=== PATIENT | female | born 1960 | race Asian ===

== ENCOUNTER 2018-03-06 19:39 | Emergency (ER) | payer OTHER ==
[2018-03-06 20:02] LABS: BILIRUBIN,URINE NEGATIVE (NEG); CLARITY,URINE CLEAR; COLOR,URINE YELLOW; GLUCOSE,URINE NEGATIVE (NEG); NITRITE,URINE NEGATIVE (NEG); PH,URINE 6.5; PROTEIN,URINE NEGATIVE (NEG-TRACE); UROBILINOGEN,URINE 0.2 mg/dL (0.2 mg/dL)
[2018-03-06] MEDS: fentaNYL PF VIAL 100 MCG/2 ML VIAL IV (20:14)
[2018-03-06] MEDS: ONDANSETRON PF 4 MG/2 ML VIAL. IV (20:14)
[2018-03-06] MEDS: IV NORMAL SALINE 1000ML BAG 1,000 ML IV (20:14)
[2018-03-06 20:15] LABS: BACTERIA,URINE FEW /HPF (0-FEW); RBC,URINE 0 /HPF (0-2); SQUAMOUS EPITHELIAL CELL,UR OCC /LPF; WBC,URINE OCC /HPF (0-4)
[2018-03-06 20:23] LABS: ADD MAN DIFF? NO
[2018-03-06 20:25] LABS: BASO % 0 % (0-3); EOS # 0.1 x10^3/uL (0.0-0.7); EOS % 2 % (0-3); HEMOGLOBIN 11.8 g/dL (12.0-15.5); LYMPH # 1.3 x10^3/uL (1.0-4.8); LYMPH % 25 % (24-48); MEAN CORPUSCULAR HEMOGLOBIN 29 pg (25-35); MEAN CORPUSCULAR HGB CONC 34 g/dL (31-37); MEAN CORPUSCULAR VOLUME 87 fL (79-100); MONO # 0.4 x10^3/uL (0.0-1.1); MONO % 8 % (0-9); NEUT # 3.4 x10^3uL (1.8-7.7); NEUT % 65 % (31-73); PLATELET COUNT 196 x10^3/uL (140-400); RED BLOOD COUNT 4.02 x10^6/uL (3.50-5.40); RED CELL DISTRIBUTION WIDTH 15.6 % (11.5-14.5); WHITE BLOOD COUNT 5.2 x10^3/uL (4.0-11.0)
[2018-03-06 20:38] LABS: ANION GAP 9 (6-14); BLOOD UREA NITROGEN 11 mg/dL (7-20); BUN/CREATININE RATIO 12 (6-20); CALCIUM 9.9 mg/dL (8.5-10.1); CARBON DIOXIDE 28 mmol/L (21-32); CHLORIDE 99 mmol/L (98-107); CREATININE 0.9 mg/dL (0.6-1.0); GFR 64.3; GLUCOSE 89 mg/dL (70-99); POTASSIUM 4.5 mmol/L (3.5-5.1); SODIUM 136 mmol/L (136-145)
[2018-03-06 20:44] LABS: ALBUMIN 3.9 g/dL (3.4-5.0); ALK PHOS 87 U/L (46-116); ALT (SGPT) 32 U/L (14-59); AST (SGOT) 21 U/L (15-37); LIPASE 106 U/L (73-393); TOTAL BILIRUBIN 0.4 mg/dL (0.2-1.0); TOTAL PROTEIN 7.8 g/dL (6.4-8.2)
[2018-03-06] MEDS ORDERED: CONTRAST GIVEN. MC (21:15)
[2018-03-06] MEDS: IOHEXOL 300 MG/ML 100ML VIAL. IV (21:27)
[2018-03-06] MEDS: AZITHROMYCIN 250 MG TABLET. PO (22:26)
== END 2018-03-06 22:29 | disposition home or self-care (01) ==
LOC: ER 22:29
DX: J18.1 Lobar pneumonia, unspecified organism (principal); K21.9 Gastro-esophageal reflux disease without esophagitis; I10 Essential (primary) hypertension; E11.9 Type 2 diabetes mellitus without complications
CPT/HCPCS: 36415; 74177; 80053; 81001; 83690; 85025; 96361; 96374; 96375; 99285-25; J2405; J3010; J7030; Q0144; Q9967

== ENCOUNTER 2018-03-11 11:42 | Emergency (ER) | payer OTHER ==
[2018-03-11 13:13] LABS: ADD MAN DIFF? NO
[2018-03-11 13:17] LABS: BASO % 0 % (0-3); EOS # 0.1 x10^3/uL (0.0-0.7); EOS % 2 % (0-3); HEMATOCRIT 35.2 % (36.0-47.0); LYMPH # 1.1 x10^3/uL (1.0-4.8); LYMPH % 21 % (24-48); MEAN CORPUSCULAR HEMOGLOBIN 30 pg (25-35); MEAN CORPUSCULAR HGB CONC 34 g/dL (31-37); MEAN CORPUSCULAR VOLUME 87 fL (79-100); MONO # 0.2 x10^3/uL (0.0-1.1); MONO % 5 % (0-9); NEUT % 73 % (31-73); PLATELET COUNT 221 x10^3/uL (140-400); RED BLOOD COUNT 4.05 x10^6/uL (3.50-5.40); RED CELL DISTRIBUTION WIDTH 14.6 % (11.5-14.5); WHITE BLOOD COUNT 5.5 x10^3/uL (4.0-11.0)
[2018-03-11] MEDS: IV NORMAL SALINE 1000ML BAG 1,000 ML IV (13:17)
[2018-03-11 13:24] LABS: ANION GAP 8 (6-14); BILIRUBIN,URINE NEGATIVE (NEG); BLOOD UREA NITROGEN 11 mg/dL (7-20); BUN/CREATININE RATIO 10 (6-20); CALCIUM 9.2 mg/dL (8.5-10.1); CARBON DIOXIDE 26 mmol/L (21-32); CHLORIDE 97 mmol/L (98-107); CLARITY,URINE CLEAR; COLOR,URINE YELLOW; CREATININE 1.1 mg/dL (0.6-1.0); GLUCOSE 137 mg/dL (70-99); GLUCOSE,URINE 250 mg/dL (NEG); NITRITE,URINE NEGATIVE (NEG); POTASSIUM 5.1 mmol/L (3.5-5.1); PROTEIN,URINE NEGATIVE (NEG-TRACE); SODIUM 131 mmol/L (136-145); UROBILINOGEN,URINE 0.2 mg/dL (0.2 mg/dL)
[2018-03-11 13:29] LABS: ALBUMIN/GLOBULIN RATIO 1.1 (1.0-1.7); ALK PHOS 81 U/L (46-116); ALT (SGPT) 34 U/L (14-59); AST (SGOT) 16 U/L (15-37); LIPASE 149 U/L (73-393); TOTAL BILIRUBIN 0.6 mg/dL (0.2-1.0); TOTAL PROTEIN 7.8 g/dL (6.4-8.2)
[2018-03-11] MEDS: ONDANSETRON PF 4 MG/2 ML VIAL. IV (13:30)
[2018-03-11 13:32] LABS: BACTERIA,URINE FEW /HPF (0-FEW); RBC,URINE 0 /HPF (0-2); SQUAMOUS EPITHELIAL CELL,UR MOD /LPF
[2018-03-11 13:33] LABS: YEAST,URINE PRESENT /HPF
== END 2018-03-11 15:17 | disposition home or self-care (01) ==
LOC: ER 11:42
DX: R11.2 Nausea with vomiting, unspecified (principal); K21.9 Gastro-esophageal reflux disease without esophagitis; I10 Essential (primary) hypertension; E11.9 Type 2 diabetes mellitus without complications; Z90.49 Acquired absence of other specified parts of digestive tract
CPT/HCPCS: 36415; 80053; 81001; 83690; 85025; 87086; 96361; 96374; 99284-25; J2405; J7030

== ENCOUNTER 2018-04-24 12:37 | Emergency (ER) | payer OTHER ==
[~2018-04-24] VITALS: Ht 165.1 cm; Wt 55.8 kg
[~2018-04-24 12:37] MED LIST: ACET500T55 PO; AZIT250T PO; INSU100V8 SQ; LOSA25TA5 PO; METF10007 PO; MIRT15TA3 PO; OMEP40CA5 PO; ONDA4TAB10 SL; ONDA4TAB7 PO
[2018-04-24 12:52] VITALS: BP 121/66
[2018-04-24] MEDS ORDERED: METH4TAB2 PO (13:31)
--- NOTE | 2018-04-24 13:32 | PHYS DOC ---
Past Medical History Past Medical History: Abscess, Diabetes-Type II, GERD, Hypertension Past Surgical History: Appendectomy, Other Additional Past Surgical Histo: bilateral eye Alcohol Use: None Drug Use: None Adult General Chief Complaint Chief Complaint: HIP PAIN HPI HPI Patient is a 57 year old female who presents with increasing pain to her right hip that is radiating down into her buttock over the past few days. The patient is diabetic but states that her blood sugars are in tight control. The patient has had similar pain in the past. She denies any known injury. Review of Systems Review of Systems Constitutional: Denies fever or chills [] Respiratory: Denies cough or shortness of breath [] Cardiovascular: No additional information not addressed in HPI [] GI: Denies abdominal pain, nausea, vomiting, bloody stools or diarrhea [] : Denies dysuria or hematuria [] Musculoskeletal: See history of present illness Integument: Denies rash or skin lesions [] Neurologic: Denies headache, focal weakness or sensory changes [] Endocrine: Denies polyuria or polydipsia [] All other systems were reviewed and found to be within normal limits, except as documented in this note. Allergies Allergies Allergies Coded Allergies Type Severity Reaction Last Updated Verified No Known Drug Allergies 09/23/13 No Physical Exam Physical Exam Constitutional: Well developed, well nourished, no acute distress, non-toxic appearance. [] Cardiovascular:Heart rate regular rhythm, no murmur [] Lungs & Thorax: Bilateral breath sounds clear to auscultation [] Abdomen: Bowel sounds normal, soft, no tenderness, no masses, no pulsatile masses. [] Skin: Warm, dry, no erythema, no rash. [] Back: No tenderness, no CVA tenderness. [] Extremities: tenderness over eye SI joint with palpation radiating into the right buttock and leg, no cyanosis, no clubbing, ROM intact, no edema. [] Neurologic: Alert and oriented X 3, normal motor function, normal sensory function, no focal deficits noted. [] Psychologic: Affect normal, judgement normal, mood normal. [] Current Patient Data Vital Signs Vital Signs Date Time Temp Pulse Resp B/P (MAP) Pulse Ox O2 Delivery O2 Flow Rate FiO2 04/24/18 12:52 98.6 70 16 121/66 (84) 99 Room Air 98.6 EKG EKG [] Radiology/Procedures Radiology/Procedures [] Course & Med Decision Making Course & Med Decision Making Pertinent Labs and Imaging studies reviewed. (See chart for details) [] Dragon Disclaimer Dragon Disclaimer This electronic medical record was generated, in whole or in part, using a voice recognition dictation system. Departure Departure Impression: Primary Impression: Sciatica Disposition: HOME, SELF-CARE Condition: STABLE Referrals: ALYCIA HORTA MD (PCP) Patient Instructions: Sciatica Additional Instructions: Take the medication as prescribed. This medication may temporarily elevate your blood sugars. Be aware of this and watch your diet accordingly. You may take ibuprofen or Tylenol along with this medication for pain. Follow-up with your primary care provider in one week if not improving or return to the emergency department if worsening. Scripts Methylprednisolone (MEDROL) 4 Mg Tab.ds.pk 1 PKG PO UD, #1 PKG Prov: NUZHAT MARTINEZ APRN 04/24/18 NUZHAT MARTINEZ APRN Apr 24, 2018 13:32
== END 2018-04-24 13:51 | disposition home or self-care (01) ==
LOC: ER 12:37
DX: M54.31 Sciatica, right side (principal); M25.551 Pain in right hip; K21.9 Gastro-esophageal reflux disease without esophagitis; I10 Essential (primary) hypertension; E11.9 Type 2 diabetes mellitus without complications; Z90.89 Acquired absence of other organs
CPT/HCPCS: 99283

== ENCOUNTER 2018-06-04 11:40 | Inpatient (IN) | payer OTHER ==
[~2018-06-04] VITALS: Ht 157.5 cm; Wt 51.7 kg
[~2018-06-04 11:40] MED LIST changes: +FOLI1TAB16 PO; +GABA-586 PO; +INSU100V13 SQ; +METH2.5T PO; +METH4TAB2 PO; +RANI150C PO
[2018-06-04] MEDS ORDERED: IV NORMAL SALINE 500ML BAG 500 ML IV ONE (12:15)
[2018-06-04] MEDS ORDERED: ONDANSETRON PF 4 MG/2 ML VIAL. IV ONE (12:15)
[2018-06-04 12:27] LABS: BILIRUBIN,URINE NEGATIVE (NEG); CLARITY,URINE CLEAR; COLOR,URINE YELLOW; NITRITE,URINE NEGATIVE (NEG); PH,URINE 6.5; PROTEIN,URINE NEGATIVE (NEG-TRACE); UROBILINOGEN,URINE 0.2 mg/dL (0.2 mg/dL)
[2018-06-04 12:37] LABS: BASO % 0 % (0-3); EOS # 0.1 x10^3/uL (0.0-0.7); EOS % 1 % (0-3); HEMATOCRIT 36.7 % (36.0-47.0); HEMOGLOBIN 13.4 g/dL (12.0-15.5); LYMPH # 1.5 x10^3/uL (1.0-4.8); LYMPH % 22 % (24-48); MEAN CORPUSCULAR HEMOGLOBIN 30 pg (25-35); MEAN CORPUSCULAR HGB CONC 37 g/dL (31-37); MEAN CORPUSCULAR VOLUME 83 fL (79-100); MONO # 0.4 x10^3/uL (0.0-1.1); MONO % 5 % (0-9); NEUT # 4.9 x10^3uL (1.8-7.7); NEUT % 72 % (31-73); PLATELET COUNT 285 x10^3/uL (140-400); RED BLOOD COUNT 4.44 x10^6/uL (3.50-5.40); RED CELL DISTRIBUTION WIDTH 13.3 % (11.5-14.5); WHITE BLOOD COUNT 6.8 x10^3/uL (4.0-11.0)
[2018-06-04 12:39] LABS: YEAST,URINE PRESENT /HPF
[2018-06-04 12:43] LABS: BACTERIA,URINE FEW /HPF (0-FEW); RBC,URINE 0 /HPF (0-2); SQUAMOUS EPITHELIAL CELL,UR MOD /LPF
--- NOTE | 2018-06-04 12:53 | PHYS DOC ---
Past Medical History Past Medical History: Abscess, Diabetes-Type II, GERD, Hypertension, Other Additional Past Medical Histor: hyponatremia Past Surgical History: Appendectomy, Other Additional Past Surgical Histo: bilateral eye Alcohol Use: None Drug Use: None Adult General Chief Complaint Chief Complaint: NAUSEA/VOMITING/DIARRHA HPI HPI Patient is a 57-year-old female who presents with complaint of nausea and vomiting with dizziness and generalized weakness that started last night. Patient recently had been admitted into the hospital with hyponatremia and was discharged home on the . Patient reportedly has been fasting from sodium due to a in the family for a period of 10 days. Patient denies any chest pain or shortness of breath. She also denies any abdominal pain. She has had no diarrhea. Patient states that symptoms of weakness and dizziness are worsened with ambulation. Review of Systems Review of Systems Constitutional: Denies fever or chills []] HENT: Denies nasal congestion or sore throat [] Respiratory: Denies cough or shortness of breath [] Cardiovascular: Denies chest pain[] GI: Denies abdominal pain. Complains of nausea and vomiting [] Neurologic: Denies headache. Complains of dizziness and generalized weakness [] All other systems were reviewed and found to be within normal limits, except as documented in this note. Current Medications Current Medications Current Medications Medications (Trade) Dose Ordered Sig/[facility] Start Time Stop Time Status Last Admin Dose Admin Acetaminophen (Tylenol) 650 mg PRN Q6HRS PRN 06/04/18 13:15 Al Hydroxide/Mg Hydroxide (Mylanta Plus Xs) 30 ml PRN Q3HRS PRN 06/04/18 13:15 Bisacodyl (Dulcolax Supp) 10 mg PRN DAILY PRN 06/04/18 13:15 Calcium Carbonate/ Glycine (Tums) 500 mg PRN Q3HRS PRN 06/04/18 13:15 Docusate Sodium (Colace) 100 mg BID 06/04/18 21:00 Enoxaparin Sodium (Lovenox 40mg Syringe) 40 mg Q24H 06/04/18 21:00 Folic Acid (Folic Acid) 1 mg DAILY 06/05/18 09:00 UNV Ibuprofen (Motrin) 400 mg PRN Q6HRS PRN 06/04/18 13:15 Magnesium Hydroxide (Milk Of Magnesia) 2,400 mg PRN Q12HR PRN 06/04/18 13:15 Morphine Sulfate (Morphine Sulfate) 1 mg PRN Q1HR PRN 06/04/18 13:15 Non-Formulary Medication (Insulin Detemir (Levemir)) 35 unit HS 06/04/18 21:00 UNV Non-Formulary Medication (Methotrexate Sodium (Methotrexate)) 2.5 mg QSU 06/04/18 16:00 UNV Non-Formulary Medication (Ranitidine Hcl ) 150 mg BID 06/04/18 21:00 UNV Ondansetron HCl (Zofran) 4 mg PRN Q6HRS PRN 06/04/18 13:15 Oxycodone HCl (Roxicodone) 5 mg PRN Q3HRS PRN 06/04/18 13:15 Prochlorperazine (Compazine) 25 mg PRN Q12HR PRN 06/04/18 13:15 Prochlorperazine Edisylate (Compazine) 10 mg PRN Q6HRS PRN 06/04/18 13:15 Sodium Chloride 500 ml @ 500 mls/hr 1X ONCE 06/04/18 12:15 06/04/18 13:14 DC 06/04/18 12:35 500 MLS/HR Allergies Allergies Allergies Coded Allergies Type Severity Reaction Last Updated Verified No Known Drug Allergies 09/23/13 No Physical Exam Physical Exam Constitutional: Well developed, well nourished, no acute distress, non-toxic appearance. [] HENT: Normocephalic, atraumatic, bilateral external ears normal, oropharynx moist, no oral exudates, nose normal. [] Eyes: PERRLA, EOMI, conjunctiva normal, no discharge. [] Neck: Normal range of motion, no tenderness, supple, no stridor. [] Cardiovascular:Heart rate regular rhythm, no murmur [] Lungs & Thorax: Bilateral breath sounds clear to auscultation [] Abdomen: Bowel sounds normal, soft, no tenderness, no masses, no pulsatile masses. [] Skin: Warm, dry, no erythema, no rash. [] Back: No tenderness, no CVA tenderness. [] Extremities: No tenderness, no cyanosis, no clubbing, ROM intact, no edema. [] Neurologic: Alert and oriented X 3, normal motor function, normal sensory function, no focal deficits noted. [] Psychologic: Affect normal, judgement normal, mood normal. [] Current Patient Data Vital Signs Vital Signs Date Time Temp Pulse Resp B/P (MAP) Pulse Ox O2 Delivery O2 Flow Rate FiO2 06/04/18 12:37 68 17 145/81 (102) 98 Room Air 06/04/18 12:05 98.1 98.1 Lab Values Laboratory Tests Test 06/04/18 12:05 06/04/18 12:30 Urine Collection Type Unknown Urine Color Yellow Urine Clarity Clear Urine pH 6.5 Urine Specific [place] 1.015 Urine Protein Negative mg/dL (NEG-TRACE) Urine Glucose (UA) >=1000 mg/dL (NEG) Urine Ketones (Stick) Negative mg/dL (NEG) Urine Blood Negative (NEG) Urine Nitrite Negative (NEG) Urine Bilirubin Negative (NEG) Urine Urobilinogen Dipstick 0.2 mg/dL (0.2 mg/dL) Urine Leukocyte Esterase Negative (NEG) Urine RBC 0 /HPF (0-2) Urine WBC 1-4 /HPF (0-4) Urine Squamous Epithelial Cells Mod /LPF Urine Bacteria Few /HPF (0-FEW) Urine Mucus Slight /LPF Urine Yeast Present /HPF White Blood Count 6.8 x10^3/uL (4.0-11.0) Red Blood Count 4.44 x10^6/uL (3.50-5.40) Hemoglobin 13.4 g/dL (12.0-15.5) Hematocrit 36.7 % (36.0-47.0) Mean Corpuscular Volume 83 fL (79-100) Mean Corpuscular Hemoglobin 30 pg (25-35) Mean Corpuscular Hemoglobin Concent 37 g/dL (31-37) Red Cell Distribution Width 13.3 % (11.5-14.5) Platelet Count 285 x10^3/uL (140-400) Neutrophils (%) (Auto) 72 % (31-73) Lymphocytes (%) (Auto) 22 % (24-48) L Monocytes (%) (Auto) 5 % (0-9) Eosinophils (%) (Auto) 1 % (0-3) Basophils (%) (Auto) 0 % (0-3) Neutrophils # (Auto) 4.9 x10^3uL (1.8-7.7) Lymphocytes # (Auto) 1.5 x10^3/uL (1.0-4.8) Monocytes # (Auto) 0.4 x10^3/uL (0.0-1.1) Eosinophils # (Auto) 0.1 x10^3/uL (0.0-0.7) Basophils # (Auto) 0.0 x10^3/uL (0.0-0.2) Sodium Level 115 mmol/L (136-145) *L Potassium Level 3.9 mmol/L (3.5-5.1) Chloride Level 80 mmol/L (98-107) L Carbon Dioxide Level 28 mmol/L (21-32) Anion Gap 7 (6-14) Blood Urea Nitrogen 8 mg/dL (7-20) Creatinine 0.8 mg/dL (0.6-1.0) Estimated GFR (Cockcroft-Gault) 73.7 BUN/Creatinine Ratio 10 (6-20) Glucose Level 265 mg/dL (70-99) H Calcium Level 9.9 mg/dL (8.5-10.1) Magnesium Level 1.3 mg/dL (1.8-2.4) L Total Bilirubin 0.9 mg/dL (0.2-1.0) Aspartate Amino Transferase (AST) 18 U/L (15-37) Alanine Aminotransferase (ALT) 31 U/L (14-59) Alkaline Phosphatase 84 U/L (46-116) Total Protein 8.1 g/dL (6.4-8.2) Albumin 4.1 g/dL (3.4-5.0) Albumin/Globulin Ratio 1.0 (1.0-1.7) Laboratory Tests 06/04/18 12:30 Laboratory Tests 06/04/18 12:30 EKG EKG [] Radiology/Procedures Radiology/Procedures [] Course & Med Decision Making Course & Med Decision Making Pertinent Labs and Imaging studies reviewed. (See chart for details) [] Dragon Disclaimer Dragon Disclaimer This electronic medical record was generated, in whole or in part, using a voice recognition dictation system. Departure Departure Impression: Primary Impression: Hyponatremia Disposition: 09 ADMITTED INPATIENT Admitting Physician: Sarah Loyd Condition: GOOD Referrals: ALYCIA HORTA MD (PCP) SUNDAY ESQUIVEL Jr. DO Jun 04, 2018 12:53
[2018-06-04 12:55] LABS: ALBUMIN 4.1 g/dL (3.4-5.0); CALCIUM 9.9 mg/dL (8.5-10.1); CREATININE 0.8 mg/dL (0.6-1.0); GFR 73.7; MAGNESIUM 1.3 mg/dL (1.8-2.4); POTASSIUM 3.9 mmol/L (3.5-5.1); TOTAL BILIRUBIN 0.9 mg/dL (0.2-1.0); TOTAL PROTEIN 8.1 g/dL (6.4-8.2)
--- NOTE | 2018-06-04 13:12 | PDOC1 ---
History and Physical Date of Admission Date of Admission DATE: 06/04/18 TIME: 13:04 Identification/Chief Complaint Chief Complaint Nausea and emesis multiple episodes, weak Source Source: Caregiver, Chart review, Patient History of Present Illness History of Present Illness 57-year-old Setswana speaking female, looks older than stated age, the granddaughter helps translate, was just discharged her 3 days ago for hyponatremia and some suspected pneumonia The diagnosis of a colleague on discharge with the following: Consolidation in the left lower lobe most likely pneumonia or aspiration. suspect atelectasis, no fever noted HYPONATREMIA, improved, suspect volume depletion Acute grief reaction diabetes, uncontrolled, IMPROVED Comes in and reports that has been fasting for 10 days, after recent in the family., But one day prior to admission multiple episodes of vomitus - every 2 hours. NO fevers, no diarrhea Potassium is okay creatinine okay but sodium was critically low at 115. Looking at old records it was not this low. Hence admitted. I aM asking ER M.D. to get in touch with renal if this needs a hypertonic saline in the ICU or just aggressive NS Her only past medical history diabetes on insulin 35 units daily at bedtime with unknown hemoglobin A1c. And antibiotics for recent pneumonia No smoker, no alcohol drinking. Past surgical history is appendectomy NO signif Familyhistory SHe is nontoxic appearing and is not confused Past Medical History Pulmonary: No pertinent hx Endocrine: Diabetes Family History Family History: Hypertension Social History Smoke: No ALCOHOL: none Drugs: None Current Medications Current Medications Current Medications Sodium Chloride 500 ml @ 500 mls/hr 1X ONCE IV Last administered on at 12:35; Start 06/04/18 at 12:15; Stop 06/04/18 at 13:14 Ondansetron HCl (Zofran) 4 mg 1X ONCE IV Last administered on 06/04/18at 12:35 ; Start 06/04/18 at 12:15; Stop 06/04/18 at 12:18; Status DC Active Scripts Active Reported Methotrexate (Methotrexate Sodium) 2.5 Mg Tablet 2.5 Mg PO QSU Ranitidine Hcl 150 Mg Capsule 150 Mg PO BID Folic Acid 1 Mg Tablet 1 Mg PO DAILY Levemir (Insulin Detemir) 100 Unit/1 Ml Vial 35 Unit SQ HS Allergies Allergies: Coded Allergies: No Known Drug Allergies (Unverified , 2/2/14) ROS Review of System as per history of present illness, the rest of ROS 14 point negative Physical Exam General: Alert, Oriented X3, Cooperative, No acute distress HEENT: Atraumatic, PERRLA, EOMI Lungs: Clear to auscultation, Normal air movement Heart: S1S2, RRR, no thrills, no rubs, no gallops, no murmurs Cardiovascular: S1, S2 Breasts: Normal, Rt breast nml w/o mass, Lt breast nml w/o mass, Nipples normal Abdomen: Normal bowel sounds, Soft, No tenderness, No hepatosplenomegaly, No masses Rectal Exam: not examined PELVIC: Nml ext genitalia Extremities: No clubbing, No cyanosis, No edema, Normal pulses, No tenderness/ swelling Skin: No rashes, No breakdown, No significant lesion Neuro: Normal gait, Normal speech, Strength at 5/5 X4 ext, Normal tone, Sensation intact, Cranial nerves 3-12 NL, Reflexes 2+ Psych/Mental Status: Mental status NL, Mood NL Vitals Vitals Vital Signs Date Time Temp Pulse Resp B/P (MAP) Pulse Ox O2 Delivery O2 Flow Rate FiO2 06/04/18 12:37 68 17 145/81 (102) 98 Room Air 06/04/18 12:05 98.1 98.1 Labs Labs Laboratory Tests Test 06/04/18 12:05 06/04/18 12:30 Urine Collection Type Unknown Urine Color Yellow Urine Clarity Clear Urine pH 6.5 Urine Specific [place] 1.015 Urine Protein Negative mg/dL (NEG-TRACE) Urine Glucose (UA) >=1000 mg/dL (NEG) Urine Ketones (Stick) Negative mg/dL (NEG) Urine Blood Negative (NEG) Urine Nitrite Negative (NEG) Urine Bilirubin Negative (NEG) Urine Urobilinogen Dipstick 0.2 mg/dL (0.2 mg/dL) Urine Leukocyte Esterase Negative (NEG) Urine RBC 0 /HPF (0-2) Urine WBC 1-4 /HPF (0-4) Urine Squamous Epithelial Cells Mod /LPF Urine Bacteria Few /HPF (0-FEW) Urine Mucus Slight /LPF Urine Yeast Present /HPF White Blood Count 6.8 x10^3/uL (4.0-11.0) Red Blood Count 4.44 x10^6/uL (3.50-5.40) Hemoglobin 13.4 g/dL (12.0-15.5) Hematocrit 36.7 % (36.0-47.0) Mean Corpuscular Volume 83 fL (79-100) Mean Corpuscular Hemoglobin 30 pg (25-35) Mean Corpuscular Hemoglobin Concent 37 g/dL (31-37) Red Cell Distribution Width 13.3 % (11.5-14.5) Platelet Count 285 x10^3/uL (140-400) Neutrophils (%) (Auto) 72 % (31-73) Lymphocytes (%) (Auto) 22 % (24-48) Monocytes (%) (Auto) 5 % (0-9) Eosinophils (%) (Auto) 1 % (0-3) Basophils (%) (Auto) 0 % (0-3) Neutrophils # (Auto) 4.9 x10^3uL (1.8-7.7) Lymphocytes # (Auto) 1.5 x10^3/uL (1.0-4.8) Monocytes # (Auto) 0.4 x10^3/uL (0.0-1.1) Eosinophils # (Auto) 0.1 x10^3/uL (0.0-0.7) Basophils # (Auto) 0.0 x10^3/uL (0.0-0.2) Sodium Level 115 mmol/L (136-145) Potassium Level 3.9 mmol/L (3.5-5.1) Chloride Level 80 mmol/L (98-107) Carbon Dioxide Level 28 mmol/L (21-32) Anion Gap 7 (6-14) Blood Urea Nitrogen 8 mg/dL (7-20) Creatinine 0.8 mg/dL (0.6-1.0) Estimated GFR (Cockcroft-Gault) 73.7 BUN/Creatinine Ratio 10 (6-20) Glucose Level 265 mg/dL (70-99) Calcium Level 9.9 mg/dL (8.5-10.1) Magnesium Level 1.3 mg/dL (1.8-2.4) Total Bilirubin 0.9 mg/dL (0.2-1.0) Aspartate Amino Transf (AST/SGOT) 18 U/L (15-37) Alanine Aminotransferase (ALT/SGPT) 31 U/L (14-59) Alkaline Phosphatase 84 U/L (46-116) Total Protein 8.1 g/dL (6.4-8.2) Albumin 4.1 g/dL (3.4-5.0) Albumin/Globulin Ratio 1.0 (1.0-1.7) Laboratory Tests Test 06/04/18 12:05 06/04/18 12:30 Urine Collection Type Unknown Urine Color Yellow Urine Clarity Clear Urine pH 6.5 Urine Specific [place] 1.015 Urine Protein Negative mg/dL (NEG-TRACE) Urine Glucose (UA) >=1000 mg/dL (NEG) Urine Ketones (Stick) Negative mg/dL (NEG) Urine Blood Negative (NEG) Urine Nitrite Negative (NEG) Urine Bilirubin Negative (NEG) Urine Urobilinogen Dipstick 0.2 mg/dL (0.2 mg/dL) Urine Leukocyte Esterase Negative (NEG) Urine RBC 0 /HPF (0-2) Urine WBC 1-4 /HPF (0-4) Urine Squamous Epithelial Cells Mod /LPF Urine Bacteria Few /HPF (0-FEW) Urine Mucus Slight /LPF Urine Yeast Present /HPF White Blood Count 6.8 x10^3/uL (4.0-11.0) Red Blood Count 4.44 x10^6/uL (3.50-5.40) Hemoglobin 13.4 g/dL (12.0-15.5) Hematocrit 36.7 % (36.0-47.0) Mean Corpuscular Volume 83 fL (79-100) Mean Corpuscular Hemoglobin 30 pg (25-35) Mean Corpuscular Hemoglobin Concent 37 g/dL (31-37) Red Cell Distribution Width 13.3 % (11.5-14.5) Platelet Count 285 x10^3/uL (140-400) Neutrophils (%) (Auto) 72 % (31-73) Lymphocytes (%) (Auto) 22 % (24-48) Monocytes (%) (Auto) 5 % (0-9) Eosinophils (%) (Auto) 1 % (0-3) Basophils (%) (Auto) 0 % (0-3) Neutrophils # (Auto) 4.9 x10^3uL (1.8-7.7) Lymphocytes # (Auto) 1.5 x10^3/uL (1.0-4.8) Monocytes # (Auto) 0.4 x10^3/uL (0.0-1.1) Eosinophils # (Auto) 0.1 x10^3/uL (0.0-0.7) Basophils # (Auto) 0.0 x10^3/uL (0.0-0.2) Sodium Level 115 mmol/L (136-145) Potassium Level 3.9 mmol/L (3.5-5.1) Chloride Level 80 mmol/L (98-107) Carbon Dioxide Level 28 mmol/L (21-32) Anion Gap 7 (6-14) Blood Urea Nitrogen 8 mg/dL (7-20) Creatinine 0.8 mg/dL (0.6-1.0) Estimated GFR (Cockcroft-Gault) 73.7 BUN/Creatinine Ratio 10 (6-20) Glucose Level 265 mg/dL (70-99) Calcium Level 9.9 mg/dL (8.5-10.1) Magnesium Level 1.3 mg/dL (1.8-2.4) Total Bilirubin 0.9 mg/dL (0.2-1.0) Aspartate Amino Transf (AST/SGOT) 18 U/L (15-37) Alanine Aminotransferase (ALT/SGPT) 31 U/L (14-59) Alkaline Phosphatase 84 U/L (46-116) Total Protein 8.1 g/dL (6.4-8.2) Albumin 4.1 g/dL (3.4-5.0) Albumin/Globulin Ratio 1.0 (1.0-1.7) VTE Prophylaxis Ordered VTE Prophylaxis Devices: Yes VTE Pharmacological Prophylaxi: Yes Assessment/Plan Assessment/Plan Critical Hyponatremia 115 Emesis multiple episodes x 1 day Fasting for 10 days Diabetes type 2 unknown hemoglobin A1c, on insulin Language barrier Recent pneumonia Grief - recent in family Plan: I am awaiting callback from renal if this needs hypertonic or just normal saline , admission disposition depends where depending if needs hypertonic in ICU or just normal saline on telemetry floor Hook To telemetry I have reconciled home meds including insulin Sliding scale insulin Check TSH, check hemoglobin A1c PT OT Regular diet Fall risk Seen at ER, discussed with daughter at bedside BROOKS BARRY MD Jun 04, 2018 13:12
[2018-06-04] MEDS ORDERED: IBUPROFEN 400 MG TABLET. PO PRN (13:15)
[2018-06-04] MEDS ORDERED: oxyCODONE IR 5 MG TABLET PO PRN (13:15)
[2018-06-04] MEDS ORDERED: MAG HYDROX/ALUMINUM HYD/SIMETH 30 ML ORAL.SUSP PO PRN (13:15)
[2018-06-04] MEDS ORDERED: PROCHLORPERAZINE 25 MG SUPP.RECT. PR PRN (13:15)
[2018-06-04] MEDS ORDERED: MORPHINE SULFATE 2 MG/ML VIAL. IV PRN (13:15)
[2018-06-04] MEDS ORDERED: ONDANSETRON PF 4 MG/2 ML VIAL. IV PRN (13:15)
[2018-06-04] MEDS ORDERED: MAGNESIUM HYDROXIDE 2,400 MG/30 ML ORAL.SUSP. PO PRN (13:15)
[2018-06-04] MEDS ORDERED: CALCIUM CARBONATE 500 MG TAB.CHEW PO PRN (13:15)
[2018-06-04] MEDS ORDERED: PROCHLORPERAZINE 10 MG/2 ML VIAL. IV PRN (13:15)
[2018-06-04] MEDS ORDERED: BISACODYL 10 MG SUPP.RECT. PR PRN (13:15)
[2018-06-04] MEDS ORDERED: ACETAMINOPHEN 325 MG TABLET. PO PRN (13:15)
[2018-06-04] MEDS: IV NORMAL SALINE 1000ML BAG 1,000 ML IV SCH (13:30)
[2018-06-04 14:45] VITALS: BP 110/70
[2018-06-04] MEDS ORDERED: DEXTROSE 50% 25 GM / 50ML DISP.SYRIN. IV PRN (15:30)
[2018-06-04] MEDS ORDERED: METHOTREXATE SODIUM 2.5 MG TABLET PO SCH (17:00)
[2018-06-04] MEDS: INSULIN LISPRO 300 UNITS/3 ML INSULN.PEN. SQ SCH (17:05)
[2018-06-04 19:00] VITALS: BP 119/69
[2018-06-04] MEDS: DOCUSATE SODIUM 100 MG CAPSULE. PO SCH (21:06)
[2018-06-04] MEDS: FAMOTIDINE 20 MG TABLET. PO SCH (21:06)
[2018-06-04] MEDS: ENOXAPARIN 40 MG/0.4 ML SYRINGE. SQ SCH (21:07)
[2018-06-04] MEDS: INSULIN GLARGINE 300 UNITS/3 ML INSULN.PEN. SQ SCH (21:11)
[2018-06-04 23:00] VITALS: BP 93/49
[2018-06-05] MEDS: IV NORMAL SALINE 1000ML BAG 1,000 ML IV SCH ×2 (02:08→08:11)
[2018-06-05 03:27] VITALS: BP 102/64
[2018-06-05 04:19] LABS: CALCIUM 9.5 mg/dL (8.5-10.1); CREATININE 0.8 mg/dL (0.6-1.0); GFR 73.7; POTASSIUM 4.3 mmol/L (3.5-5.1)
[2018-06-05 07:00] VITALS: BP 123/70
[2018-06-05] MEDS: INSULIN LISPRO 300 UNITS/3 ML INSULN.PEN. SQ SCH ×5 (08:00→17:00)
[2018-06-05] MEDS: FOLIC ACID 1 MG TABLET. PO SCH (08:08)
[2018-06-05] MEDS: FAMOTIDINE 20 MG TABLET. PO SCH ×2 (08:08→20:37)
[2018-06-05] MEDS: DOCUSATE SODIUM 100 MG CAPSULE. PO SCH ×2 (08:08→20:37)
--- NOTE | 2018-06-05 10:12 | PDOC ---
SUBJECTIVE ROS No Complaints, feeling better. No N/V OBJECTIVE Vital Signs Vital Signs Date Time Temp Pulse Resp B/P (MAP) Pulse Ox O2 Delivery O2 Flow Rate FiO2 06/05/18 07:00 98.1 66 18 123/70 (87) 99 Room Air 98.1 I & 0 Intake and Output 06/05/18 07:00 Intake Total 2050 ml Balance 2050 ml Intake Oral 550 ml IV Total 1500 ml # Voids 3 PHYSICAL EXAM Physical Exam General: No acute distress HEENT: OM Moist Lungs: Clear to auscultation, Non Labored Heart: S1S2, RRR, Abdomen: Normal bowel sounds, Soft, No tenderness Extremities: No edema Skin: No rashes, Neuro: Grossly Normal DIAGNOSIS/ASSESSMENT Assessment & Plan Hyponatremia- Likely Pre-renal - sec to Fasting, Vomiting She was just discharged her 4 days ago for hyponatremia and suspected pneumonia She recd IV NS - 3rd running as per RN DC NS as Na Over corrected , D5 W 1 Lts , Recheck Na later this afternoon Pt completely asymptomatic , Monitor Diabetes - Defer to Primary Discussed with RN and her son at bedside COMMENT/RELEVANT DATA Meds Current Medications Medications (Trade) Dose Ordered Sig/[facility] Start Time Stop Time Status Last Admin Dose Admin Acetaminophen (Tylenol) 650 mg PRN Q6HRS PRN 06/04/18 13:15 Al Hydroxide/Mg Hydroxide (Mylanta Plus Xs) 30 ml PRN Q3HRS PRN 06/04/18 13:15 Bisacodyl (Dulcolax Supp) 10 mg PRN DAILY PRN 06/04/18 13:15 Calcium Carbonate/ Glycine (Tums) 500 mg PRN Q3HRS PRN 06/04/18 13:15 Dextrose (Dextrose 50%-Water Syringe) 12.5 gm PRN Q15MIN PRN 06/04/18 15:30 Docusate Sodium (Colace) 100 mg BID 06/04/18 21:00 06/05/18 08:08 100 MG Enoxaparin Sodium (Lovenox 40mg Syringe) 40 mg Q24H 06/04/18 21:00 06/04/18 21:07 40 MG Famotidine (Pepcid) 20 mg BID 06/04/18 21:00 06/05/18 08:08 20 MG Folic Acid (Folic Acid) 1 mg DAILY 06/05/18 09:00 06/05/18 08:08 1 MG Ibuprofen (Motrin) 400 mg PRN Q6HRS PRN 06/04/18 13:15 Insulin Glargine (Lantus) 35 units QHS 06/04/18 21:00 06/04/18 21:11 35 UNITS Insulin Human Lispro (HumaLOG) 0-9 UNITS TIDWMEALS 06/04/18 17:00 06/04/18 17:05 4 UNITS Magnesium Hydroxide (Milk Of Magnesia) 2,400 mg PRN Q12HR PRN 06/04/18 13:15 Methotrexate (Rheumatrex) 2.5 mg 06/04/18 06/04/18 17:00 06/04/18 17:01 DC 06/04/18 17:04 2.5 MG Morphine Sulfate (Morphine Sulfate) 1 mg PRN Q1HR PRN 06/04/18 13:15 Ondansetron HCl (Zofran) 4 mg PRN Q6HRS PRN 06/04/18 13:15 Oxycodone HCl (Roxicodone) 5 mg PRN Q3HRS PRN 06/04/18 13:15 Prochlorperazine (Compazine) 25 mg PRN Q12HR PRN 06/04/18 13:15 Prochlorperazine Edisylate (Compazine) 10 mg PRN Q6HRS PRN 06/04/18 13:15 Sodium Chloride 1,000 ml @ 125 mls/hr Q8H 06/04/18 13:12 06/05/18 13:11 06/05/18 08:11 125 MLS/HR Lab Laboratory Tests Test 06/04/18 12:05 06/04/18 12:30 06/04/18 16:46 06/04/18 20:46 Urine Collection Type Unknown Urine Color Yellow Urine Clarity Clear Urine pH 6.5 Urine Specific [place] 1.015 Urine Protein Negative mg/dL (NEG-TRACE) Urine Glucose (UA) >=1000 mg/dL (NEG) Urine Ketones (Stick) Negative mg/dL (NEG) Urine Blood Negative (NEG) Urine Nitrite Negative (NEG) Urine Bilirubin Negative (NEG) Urine Urobilinogen Dipstick 0.2 mg/dL (0.2 mg/dL) Urine Leukocyte Esterase Negative (NEG) Urine RBC 0 /HPF (0-2) Urine WBC 1-4 /HPF (0-4) Urine Squamous Epithelial Cells Mod /LPF Urine Bacteria Few /HPF (0-FEW) Urine Mucus Slight /LPF Urine Yeast Present /HPF White Blood Count 6.8 x10^3/uL (4.0-11.0) Red Blood Count 4.44 x10^6/uL (3.50-5.40) Hemoglobin 13.4 g/dL (12.0-15.5) Hematocrit 36.7 % (36.0-47.0) Mean Corpuscular Volume 83 fL (79-100) Mean Corpuscular Hemoglobin 30 pg (25-35) Mean Corpuscular Hemoglobin Concent 37 g/dL (31-37) Red Cell Distribution Width 13.3 % (11.5-14.5) Platelet Count 285 x10^3/uL (140-400) Neutrophils (%) (Auto) 72 % (31-73) Lymphocytes (%) (Auto) 22 % (24-48) Monocytes (%) (Auto) 5 % (0-9) Eosinophils (%) (Auto) 1 % (0-3) Basophils (%) (Auto) 0 % (0-3) Neutrophils # (Auto) 4.9 x10^3uL (1.8-7.7) Lymphocytes # (Auto) 1.5 x10^3/uL (1.0-4.8) Monocytes # (Auto) 0.4 x10^3/uL (0.0-1.1) Eosinophils # (Auto) 0.1 x10^3/uL (0.0-0.7) Basophils # (Auto) 0.0 x10^3/uL (0.0-0.2) Sodium Level 115 mmol/L (136-145) Potassium Level 3.9 mmol/L (3.5-5.1) Chloride Level 80 mmol/L (98-107) Carbon Dioxide Level 28 mmol/L (21-32) Anion Gap 7 (6-14) Blood Urea Nitrogen 8 mg/dL (7-20) Creatinine 0.8 mg/dL (0.6-1.0) Estimated GFR (Cockcroft-Gault) 73.7 BUN/Creatinine Ratio 10 (6-20) Glucose Level 265 mg/dL (70-99) Calcium Level 9.9 mg/dL (8.5-10.1) Magnesium Level 1.3 mg/dL (1.8-2.4) Total Bilirubin 0.9 mg/dL (0.2-1.0) Aspartate Amino Transf (AST/SGOT) 18 U/L (15-37) Alanine Aminotransferase (ALT/SGPT) 31 U/L (14-59) Alkaline Phosphatase 84 U/L (46-116) Total Protein 8.1 g/dL (6.4-8.2) Albumin 4.1 g/dL (3.4-5.0) Albumin/Globulin Ratio 1.0 (1.0-1.7) Thyroid Stimulating Hormone (TSH) 2.220 uIU/mL (0.358-3.74) Glucose (Fingerstick) 259 mg/dL (70-99) 316 mg/dL (70-99) Test 06/05/18 03:15 06/05/18 07:29 Sodium Level 133 mmol/L (136-145) Potassium Level 4.3 mmol/L (3.5-5.1) Chloride Level 99 mmol/L (98-107) Carbon Dioxide Level 26 mmol/L (21-32) Anion Gap 8 (6-14) Blood Urea Nitrogen 10 mg/dL (7-20) Creatinine 0.8 mg/dL (0.6-1.0) Estimated GFR (Cockcroft-Gault) 73.7 Glucose Level 152 mg/dL (70-99) Calcium Level 9.5 mg/dL (8.5-10.1) Glucose (Fingerstick) 102 mg/dL (70-99) Results All relevant outside records, renal labs, imaging studies, telemetry/EKG's were reviewed. CAIO GRUBER MD Jun 05, 2018 10:12
--- NOTE | 2018-06-05 10:17 | PDOC2 ---
CONSULT Date of Consult Date of Consult DATE: 06/05/18 TIME: 10:12 Identification/Chief Complaint Chief Complaint No complaints today Source Source: Caregiver, Chart review History of Present Illness Reason for Visit: Pt is 57-year-old [place]ian speaking female admitted on 06/04 with Dx of Hyponatremia. She was just discharged r 3 days ago for hyponatremia and some suspected pneumonia She has been fasting for 10 days, after recent in the family., But one day prior to admission multiple episodes of vomitus - every 2 hours. NO fevers, no diarrhea, No CP. NO Urinary complaints She Recd IV NS , Na Corrected to 133 from 115 this am She is asymptomatic currently. No N/V/D. No ARIZA, Normal Mental status, Not Confused and speech . Reports Good UOP Son at bedside Past Medical History Pulmonary: No pertinent hx Endocrine: Diabetes Family History Family History: Hypertension Social History No ALCOHOL: none Drugs: None Current Problem List Problem List Problems Medical Problems: (1) Hyponatremia Status: Acute Current Medications Current Medications Current Medications Sodium Chloride 500 ml @ 500 mls/hr 1X ONCE IV Last administered on at 12:35; Start 06/04/18 at 12:15; Stop 06/04/18 at 13:14; Status DC Ondansetron HCl (Zofran) 4 mg 1X ONCE IV Last administered on 06/04/18at 12:35 ; Start 06/04/18 at 12:15; Stop 06/04/18 at 12:18; Status DC Ondansetron HCl (Zofran) 4 mg PRN Q6HRS PRN IV NAUSEA/VOMITING; Start at 13:15 Prochlorperazine Edisylate (Compazine) 10 mg PRN Q6HRS PRN IV NAUSEA/VOMITING, 2ND CHOICE; Start 06/04/18 at 13:15 Prochlorperazine (Compazine) 25 mg PRN Q12HR PRN [place] NAUSEA/VOMITING; Start at 13:15 Al Hydroxide/Mg Hydroxide (Mylanta Plus Xs) 30 ml PRN Q3HRS PRN PO HEARTBURN / GAS; Start 06/04/18 at 13:15 Calcium Carbonate/ Glycine (Tums) 500 mg PRN Q3HRS PRN PO UPSET STOMACH; Start 06/04/18 at 13:15 Oxycodone HCl (Roxicodone) 5 mg PRN Q3HRS PRN PO BREAKTHROUGH PAIN; Start at 13:15 Morphine Sulfate (Morphine Sulfate) 1 mg PRN Q1HR PRN IV PAIN; Start 06/04/18 at 13:15 Acetaminophen (Tylenol) 650 mg PRN Q6HRS PRN PO Headaches, Temp > 101.5F; Start 06/04/18 at 13:15 Ibuprofen (Motrin) 400 mg PRN Q6HRS PRN PO MILD PAIN; Start 06/04/18 at 13:15 Docusate Sodium (Colace) 100 mg BID PO Last administered on 06/05/18at 08:08; Start 06/04/18 at 21:00 Magnesium Hydroxide (Milk Of Magnesia) 2,400 mg PRN Q12HR PRN PO CONSTIPATION; Start 06/04/18 at 13:15 Bisacodyl (Dulcolax Supp) 10 mg PRN DAILY PRN [place] CONSTIPATION; Start 06/04/18 at 13:15 Enoxaparin Sodium (Lovenox 40mg Syringe) 40 mg Q24H SQ Last administered on at 21:07; Start 06/04/18 at 21:00 Folic Acid (Folic Acid) 1 mg DAILY PO Last administered on 06/05/18at 08:08; Start 06/05/18 at 09:00 Insulin Glargine (Lantus) 35 units QHS SQ Last administered on 06/04/18at 21:11 ; Start 06/04/18 at 21:00 Methotrexate (Rheumatrex) 2.5 mg 06/04/18 PO Last administered on 06/04/18at 17 :04; Start 06/04/18 at 17:00; Stop 06/04/18 at 17:01; Status DC Famotidine (Pepcid) 20 mg BID PO Last administered on 06/05/18at 08:08; Start 06/04/18 at 21:00 Sodium Chloride 1,000 ml @ 125 mls/hr Q8H IV Last administered on 06/05/18at 08:11; Start 06/04/18 at 13:12; Stop 06/05/18 at 13:11 Insulin Human Lispro (HumaLOG) 0-9 UNITS TIDWMEALS SQ Last administered on at 17:05; Start 06/04/18 at 17:00 Dextrose (Dextrose 50%-Water Syringe) 12.5 gm PRN Q15MIN PRN IV SEE COMMENTS; Start 06/04/18 at 15:30 Dextrose 1,000 ml @ 75 mls/hr 1X ONCE IV ; Start 06/05/18 at 10:30; Stop at 23:49 Active Scripts Active Reported Methotrexate (Methotrexate Sodium) 2.5 Mg Tablet 2.5 Mg PO QSU Ranitidine Hcl 150 Mg Capsule 150 Mg PO BID Folic Acid 1 Mg Tablet 1 Mg PO DAILY Levemir (Insulin Detemir) 100 Unit/1 Ml Vial 35 Unit SQ HS Allergies Allergies: Coded Allergies: No Known Drug Allergies (Unverified , 09/23/13) ROS Review of System As per HPI -Translated thru Son Physical Exam Physical Exam General: No acute distress HEENT: OM Moist Neck Supple Lungs: Clear to auscultation, Non Labored Heart: S1S2, RRR, Abdomen: Normal bowel sounds, Soft, No tenderness Extremities: No edema Skin: No rashes, Neuro: Grossly Normal No phelps Psych- normal Mood. Not confused Vital Signs Vital Signs Date Time Temp Pulse Resp B/P (MAP) Pulse Ox O2 Delivery O2 Flow Rate FiO2 06/05/18 07:00 98.1 66 18 123/70 (87) 99 Room Air 98.1 Assessment & Plan Hyponatremia- Likely Pre-renal - sec to Fasting, Vomiting She was just discharged her 4 days ago for hyponatremia and suspected pneumonia She recd IV NS - 3rd running as per RN DC NS as Na Over corrected , D5 W 1 Lts , Recheck Na later this afternoon Pt completely asymptomatic , Monitor Diabetes - Defer to Primary Discussed with RN and her son at bedside Labs Labs Laboratory Tests Test 06/04/18 12:05 06/04/18 12:30 06/04/18 16:46 06/04/18 20:46 Urine Collection Type Unknown Urine Color Yellow Urine Clarity Clear Urine pH 6.5 Urine Specific [place] 1.015 Urine Protein Negative mg/dL (NEG-TRACE) Urine Glucose (UA) >=1000 mg/dL (NEG) Urine Ketones (Stick) Negative mg/dL (NEG) Urine Blood Negative (NEG) Urine Nitrite Negative (NEG) Urine Bilirubin Negative (NEG) Urine Urobilinogen Dipstick 0.2 mg/dL (0.2 mg/dL) Urine Leukocyte Esterase Negative (NEG) Urine RBC 0 /HPF (0-2) Urine WBC 1-4 /HPF (0-4) Urine Squamous Epithelial Cells Mod /LPF Urine Bacteria Few /HPF (0-FEW) Urine Mucus Slight /LPF Urine Yeast Present /HPF White Blood Count 6.8 x10^3/uL (4.0-11.0) Red Blood Count 4.44 x10^6/uL (3.50-5.40) Hemoglobin 13.4 g/dL (12.0-15.5) Hematocrit 36.7 % (36.0-47.0) Mean Corpuscular Volume 83 fL (79-100) Mean Corpuscular Hemoglobin 30 pg (25-35) Mean Corpuscular Hemoglobin Concent 37 g/dL (31-37) Red Cell Distribution Width 13.3 % (11.5-14.5) Platelet Count 285 x10^3/uL (140-400) Neutrophils (%) (Auto) 72 % (31-73) Lymphocytes (%) (Auto) 22 % (24-48) Monocytes (%) (Auto) 5 % (0-9) Eosinophils (%) (Auto) 1 % (0-3) Basophils (%) (Auto) 0 % (0-3) Neutrophils # (Auto) 4.9 x10^3uL (1.8-7.7) Lymphocytes # (Auto) 1.5 x10^3/uL (1.0-4.8) Monocytes # (Auto) 0.4 x10^3/uL (0.0-1.1) Eosinophils # (Auto) 0.1 x10^3/uL (0.0-0.7) Basophils # (Auto) 0.0 x10^3/uL (0.0-0.2) Sodium Level 115 mmol/L (136-145) Potassium Level 3.9 mmol/L (3.5-5.1) Chloride Level 80 mmol/L (98-107) Carbon Dioxide Level 28 mmol/L (21-32) Anion Gap 7 (6-14) Blood Urea Nitrogen 8 mg/dL (7-20) Creatinine 0.8 mg/dL (0.6-1.0) Estimated GFR (Cockcroft-Gault) 73.7 BUN/Creatinine Ratio 10 (6-20) Glucose Level 265 mg/dL (70-99) Calcium Level 9.9 mg/dL (8.5-10.1) Magnesium Level 1.3 mg/dL (1.8-2.4) Total Bilirubin 0.9 mg/dL (0.2-1.0) Aspartate Amino Transf (AST/SGOT) 18 U/L (15-37) Alanine Aminotransferase (ALT/SGPT) 31 U/L (14-59) Alkaline Phosphatase 84 U/L (46-116) Total Protein 8.1 g/dL (6.4-8.2) Albumin 4.1 g/dL (3.4-5.0) Albumin/Globulin Ratio 1.0 (1.0-1.7) Thyroid Stimulating Hormone (TSH) 2.220 uIU/mL (0.358-3.74) Glucose (Fingerstick) 259 mg/dL (70-99) 316 mg/dL (70-99) Test 06/05/18 03:15 06/05/18 07:29 Sodium Level 133 mmol/L (136-145) Potassium Level 4.3 mmol/L (3.5-5.1) Chloride Level 99 mmol/L (98-107) Carbon Dioxide Level 26 mmol/L (21-32) Anion Gap 8 (6-14) Blood Urea Nitrogen 10 mg/dL (7-20) Creatinine 0.8 mg/dL (0.6-1.0) Estimated GFR (Cockcroft-Gault) 73.7 Glucose Level 152 mg/dL (70-99) Calcium Level 9.5 mg/dL (8.5-10.1) Glucose (Fingerstick) 102 mg/dL (70-99) Laboratory Tests Test 06/04/18 12:05 06/04/18 12:30 06/04/18 16:46 06/04/18 20:46 Urine Collection Type Unknown Urine Color Yellow Urine Clarity Clear Urine pH 6.5 Urine Specific [place] 1.015 Urine Protein Negative mg/dL (NEG-TRACE) Urine Glucose (UA) >=1000 mg/dL (NEG) Urine Ketones (Stick) Negative mg/dL (NEG) Urine Blood Negative (NEG) Urine Nitrite Negative (NEG) Urine Bilirubin Negative (NEG) Urine Urobilinogen Dipstick 0.2 mg/dL (0.2 mg/dL) Urine Leukocyte Esterase Negative (NEG) Urine RBC 0 /HPF (0-2) Urine WBC 1-4 /HPF (0-4) Urine Squamous Epithelial Cells Mod /LPF Urine Bacteria Few /HPF (0-FEW) Urine Mucus Slight /LPF Urine Yeast Present /HPF White Blood Count 6.8 x10^3/uL (4.0-11.0) Red Blood Count 4.44 x10^6/uL (3.50-5.40) Hemoglobin 13.4 g/dL (12.0-15.5) Hematocrit 36.7 % (36.0-47.0) Mean Corpuscular Volume 83 fL (79-100) Mean Corpuscular Hemoglobin 30 pg (25-35) Mean Corpuscular Hemoglobin Concent 37 g/dL (31-37) Red Cell Distribution Width 13.3 % (11.5-14.5) Platelet Count 285 x10^3/uL (140-400) Neutrophils (%) (Auto) 72 % (31-73) Lymphocytes (%) (Auto) 22 % (24-48) Monocytes (%) (Auto) 5 % (0-9) Eosinophils (%) (Auto) 1 % (0-3) Basophils (%) (Auto) 0 % (0-3) Neutrophils # (Auto) 4.9 x10^3uL (1.8-7.7) Lymphocytes # (Auto) 1.5 x10^3/uL (1.0-4.8) Monocytes # (Auto) 0.4 x10^3/uL (0.0-1.1) Eosinophils # (Auto) 0.1 x10^3/uL (0.0-0.7) Basophils # (Auto) 0.0 x10^3/uL (0.0-0.2) Sodium Level 115 mmol/L (136-145) Potassium Level 3.9 mmol/L (3.5-5.1) Chloride Level 80 mmol/L (98-107) Carbon Dioxide Level 28 mmol/L (21-32) Anion Gap 7 (6-14) Blood Urea Nitrogen 8 mg/dL (7-20) Creatinine 0.8 mg/dL (0.6-1.0) Estimated GFR (Cockcroft-Gault) 73.7 BUN/Creatinine Ratio 10 (6-20) Glucose Level 265 mg/dL (70-99) Calcium Level 9.9 mg/dL (8.5-10.1) Magnesium Level 1.3 mg/dL (1.8-2.4) Total Bilirubin 0.9 mg/dL (0.2-1.0) Aspartate Amino Transf (AST/SGOT) 18 U/L (15-37) Alanine Aminotransferase (ALT/SGPT) 31 U/L (14-59) Alkaline Phosphatase 84 U/L (46-116) Total Protein 8.1 g/dL (6.4-8.2) Albumin 4.1 g/dL (3.4-5.0) Albumin/Globulin Ratio 1.0 (1.0-1.7) Thyroid Stimulating Hormone (TSH) 2.220 uIU/mL (0.358-3.74) Glucose (Fingerstick) 259 mg/dL (70-99) 316 mg/dL (70-99) Test 06/05/18 03:15 06/05/18 07:29 Sodium Level 133 mmol/L (136-145) Potassium Level 4.3 mmol/L (3.5-5.1) Chloride Level 99 mmol/L (98-107) Carbon Dioxide Level 26 mmol/L (21-32) Anion Gap 8 (6-14) Blood Urea Nitrogen 10 mg/dL (7-20) Creatinine 0.8 mg/dL (0.6-1.0) Estimated GFR (Cockcroft-Gault) 73.7 Glucose Level 152 mg/dL (70-99) Calcium Level 9.5 mg/dL (8.5-10.1) Glucose (Fingerstick) 102 mg/dL (70-99) Review All relevant outside records, renal labs, imaging studies, telemetry/EKG's were reviewed. CAIO GRUBER MD Jun 05, 2018 10:17
[2018-06-05] MEDS ORDERED: IV DEXTROSE 5% 1,000 ML IV ONE ×3 (10:30→23:51)
[2018-06-05 11:00] VITALS: BP 104/53
[2018-06-05 14:24] LABS: CREATININE 0.7 mg/dL (0.6-1.0); GFR 85.9; POTASSIUM 4.9 mmol/L (3.5-5.1)
--- NOTE | 2018-06-05 14:40 | PDOC ---
PROGRESS NOTES Chief Complaint Chief Complaint Critical Hyponatremia 115 Emesis multiple episodes x 1 day Fasting for 3ds Diabetes type 2 unknown hemoglobin A1c, on insulin Language barrier Recent pneumonia Grief - recent in family Plan: fu with renal, on D5, but Na 141 now after 1d. NS stopped. talked to RN will double check with renal, otherwise cont d5, repeat BMP later today cont lantus 35u qhs, add novolog 5u tid, ssi talked to son at bedside who translate History of Present Illness History of Present Illness feels good today, Na 133 from 115 on NS no N/V hyperglycemia with eating beans, + d5 was dced 3ds ago for low Na120, back with 115, only eats breakfast for fasting with family member recently, said tmr is last day fasting Vitals Vitals Vital Signs Date Time Temp Pulse Resp B/P (MAP) Pulse Ox O2 Delivery O2 Flow Rate FiO2 06/05/18 11:00 97.7 71 18 104/53 (70) 98 Room Air 97.7 Physical Exam General: Alert, Oriented X3, Cooperative, No acute distress Heart: Regular rate, Normal S1, Normal S2 Lungs: Clear Abdomen: Normal bowel sounds, Soft, No tenderness, No hepatosplenomegaly, No masses Extremities: No clubbing, No cyanosis, No edema, Normal pulses, No tenderness/ swelling Skin: No rashes, No breakdown, No significant lesion Labs LABS Laboratory Tests Test 06/04/18 16:46 06/04/18 20:46 06/05/18 03:15 06/05/18 07:29 Glucose (Fingerstick) 259 mg/dL (70-99) 316 mg/dL (70-99) 102 mg/dL (70-99) Sodium Level 133 mmol/L (136-145) Potassium Level 4.3 mmol/L (3.5-5.1) Chloride Level 99 mmol/L (98-107) Carbon Dioxide Level 26 mmol/L (21-32) Anion Gap 8 (6-14) Blood Urea Nitrogen 10 mg/dL (7-20) Creatinine 0.8 mg/dL (0.6-1.0) Estimated GFR (Cockcroft-Gault) 73.7 Glucose Level 152 mg/dL (70-99) Calcium Level 9.5 mg/dL (8.5-10.1) Test 06/05/18 11:46 06/05/18 13:55 Glucose (Fingerstick) 249 mg/dL (70-99) Sodium Level 141 mmol/L (136-145) Potassium Level 4.9 mmol/L (3.5-5.1) Chloride Level 105 mmol/L (98-107) Carbon Dioxide Level 27 mmol/L (21-32) Anion Gap 9 (6-14) Blood Urea Nitrogen 10 mg/dL (7-20) Creatinine 0.7 mg/dL (0.6-1.0) Estimated GFR (Cockcroft-Gault) 85.9 Glucose Level 168 mg/dL (70-99) Calcium Level 9.0 mg/dL (8.5-10.1) Assessment and Plan Assessmemt and Plan Problems Medical Problems: (1) Hyponatremia Status: Acute Comment Review of Relevant I have reviewed the following items marisa (where applicable) has been applied. Labs Laboratory Tests Test 06/04/18 12:05 06/04/18 12:30 06/04/18 16:46 06/04/18 20:46 Urine Collection Type Unknown Urine Color Yellow Urine Clarity Clear Urine pH 6.5 Urine Specific [place] 1.015 Urine Protein Negative mg/dL (NEG-TRACE) Urine Glucose (UA) >=1000 mg/dL (NEG) Urine Ketones (Stick) Negative mg/dL (NEG) Urine Blood Negative (NEG) Urine Nitrite Negative (NEG) Urine Bilirubin Negative (NEG) Urine Urobilinogen Dipstick 0.2 mg/dL (0.2 mg/dL) Urine Leukocyte Esterase Negative (NEG) Urine RBC 0 /HPF (0-2) Urine WBC 1-4 /HPF (0-4) Urine Squamous Epithelial Cells Mod /LPF Urine Bacteria Few /HPF (0-FEW) Urine Mucus Slight /LPF Urine Yeast Present /HPF White Blood Count 6.8 x10^3/uL (4.0-11.0) Red Blood Count 4.44 x10^6/uL (3.50-5.40) Hemoglobin 13.4 g/dL (12.0-15.5) Hematocrit 36.7 % (36.0-47.0) Mean Corpuscular Volume 83 fL (79-100) Mean Corpuscular Hemoglobin 30 pg (25-35) Mean Corpuscular Hemoglobin Concent 37 g/dL (31-37) Red Cell Distribution Width 13.3 % (11.5-14.5) Platelet Count 285 x10^3/uL (140-400) Neutrophils (%) (Auto) 72 % (31-73) Lymphocytes (%) (Auto) 22 % (24-48) Monocytes (%) (Auto) 5 % (0-9) Eosinophils (%) (Auto) 1 % (0-3) Basophils (%) (Auto) 0 % (0-3) Neutrophils # (Auto) 4.9 x10^3uL (1.8-7.7) Lymphocytes # (Auto) 1.5 x10^3/uL (1.0-4.8) Monocytes # (Auto) 0.4 x10^3/uL (0.0-1.1) Eosinophils # (Auto) 0.1 x10^3/uL (0.0-0.7) Basophils # (Auto) 0.0 x10^3/uL (0.0-0.2) Sodium Level 115 mmol/L (136-145) Potassium Level 3.9 mmol/L (3.5-5.1) Chloride Level 80 mmol/L (98-107) Carbon Dioxide Level 28 mmol/L (21-32) Anion Gap 7 (6-14) Blood Urea Nitrogen 8 mg/dL (7-20) Creatinine 0.8 mg/dL (0.6-1.0) Estimated GFR (Cockcroft-Gault) 73.7 BUN/Creatinine Ratio 10 (6-20) Glucose Level 265 mg/dL (70-99) Calcium Level 9.9 mg/dL (8.5-10.1) Magnesium Level 1.3 mg/dL (1.8-2.4) Total Bilirubin 0.9 mg/dL (0.2-1.0) Aspartate Amino Transf (AST/SGOT) 18 U/L (15-37) Alanine Aminotransferase (ALT/SGPT) 31 U/L (14-59) Alkaline Phosphatase 84 U/L (46-116) Total Protein 8.1 g/dL (6.4-8.2) Albumin 4.1 g/dL (3.4-5.0) Albumin/Globulin Ratio 1.0 (1.0-1.7) Thyroid Stimulating Hormone (TSH) 2.220 uIU/mL (0.358-3.74) Glucose (Fingerstick) 259 mg/dL (70-99) 316 mg/dL (70-99) Test 06/05/18 03:15 06/05/18 07:29 06/05/18 11:46 06/05/18 13:55 Sodium Level 133 mmol/L (136-145) 141 mmol/L (136-145) Potassium Level 4.3 mmol/L (3.5-5.1) 4.9 mmol/L (3.5-5.1) Chloride Level 99 mmol/L (98-107) 105 mmol/L (98-107) Carbon Dioxide Level 26 mmol/L (21-32) 27 mmol/L (21-32) Anion Gap 8 (6-14) 9 (6-14) Blood Urea Nitrogen 10 mg/dL (7-20) 10 mg/dL (7-20) Creatinine 0.8 mg/dL (0.6-1.0) 0.7 mg/dL (0.6-1.0) Estimated GFR (Cockcroft-Gault) 73.7 85.9 Glucose Level 152 mg/dL (70-99) 168 mg/dL (70-99) Calcium Level 9.5 mg/dL (8.5-10.1) 9.0 mg/dL (8.5-10.1) Glucose (Fingerstick) 102 mg/dL (70-99) 249 mg/dL (70-99) Laboratory Tests Test 06/04/18 16:46 06/04/18 20:46 06/05/18 03:15 06/05/18 07:29 Glucose (Fingerstick) 259 mg/dL (70-99) 316 mg/dL (70-99) 102 mg/dL (70-99) Sodium Level 133 mmol/L (136-145) Potassium Level 4.3 mmol/L (3.5-5.1) Chloride Level 99 mmol/L (98-107) Carbon Dioxide Level 26 mmol/L (21-32) Anion Gap 8 (6-14) Blood Urea Nitrogen 10 mg/dL (7-20) Creatinine 0.8 mg/dL (0.6-1.0) Estimated GFR (Cockcroft-Gault) 73.7 Glucose Level 152 mg/dL (70-99) Calcium Level 9.5 mg/dL (8.5-10.1) Test 06/05/18 11:46 06/05/18 13:55 Glucose (Fingerstick) 249 mg/dL (70-99) Sodium Level 141 mmol/L (136-145) Potassium Level 4.9 mmol/L (3.5-5.1) Chloride Level 105 mmol/L (98-107) Carbon Dioxide Level 27 mmol/L (21-32) Anion Gap 9 (6-14) Blood Urea Nitrogen 10 mg/dL (7-20) Creatinine 0.7 mg/dL (0.6-1.0) Estimated GFR (Cockcroft-Gault) 85.9 Glucose Level 168 mg/dL (70-99) Calcium Level 9.0 mg/dL (8.5-10.1) Medications Current Medications Sodium Chloride 500 ml @ 500 mls/hr 1X ONCE IV Last administered on at 12:35; Start 06/04/18 at 12:15; Stop 06/04/18 at 13:14; Status DC Ondansetron HCl (Zofran) 4 mg 1X ONCE IV Last administered on 06/04/18at 12:35 ; Start 06/04/18 at 12:15; Stop 06/04/18 at 12:18; Status DC Ondansetron HCl (Zofran) 4 mg PRN Q6HRS PRN IV NAUSEA/VOMITING; Start at 13:15 Prochlorperazine Edisylate (Compazine) 10 mg PRN Q6HRS PRN IV NAUSEA/VOMITING, 2ND CHOICE; Start 06/04/18 at 13:15 Prochlorperazine (Compazine) 25 mg PRN Q12HR PRN [place] NAUSEA/VOMITING; Start at 13:15 Al Hydroxide/Mg Hydroxide (Mylanta Plus Xs) 30 ml PRN Q3HRS PRN PO HEARTBURN / GAS; Start 06/04/18 at 13:15 Calcium Carbonate/ Glycine (Tums) 500 mg PRN Q3HRS PRN PO UPSET STOMACH; Start 06/04/18 at 13:15 Oxycodone HCl (Roxicodone) 5 mg PRN Q3HRS PRN PO BREAKTHROUGH PAIN; Start at 13:15 Morphine Sulfate (Morphine Sulfate) 1 mg PRN Q1HR PRN IV PAIN; Start 06/04/18 at 13:15 Acetaminophen (Tylenol) 650 mg PRN Q6HRS PRN PO Headaches, Temp > 101.5F; Start 06/04/18 at 13:15 Ibuprofen (Motrin) 400 mg PRN Q6HRS PRN PO MILD PAIN; Start 06/04/18 at 13:15 Docusate Sodium (Colace) 100 mg BID PO Last administered on 06/05/18at 08:08; Start 06/04/18 at 21:00 Magnesium Hydroxide (Milk Of Magnesia) 2,400 mg PRN Q12HR PRN PO CONSTIPATION; Start 06/04/18 at 13:15 Bisacodyl (Dulcolax Supp) 10 mg PRN DAILY PRN [place] CONSTIPATION; Start 06/04/18 at 13:15 Enoxaparin Sodium (Lovenox 40mg Syringe) 40 mg Q24H SQ Last administered on at 21:07; Start 06/04/18 at 21:00 Folic Acid (Folic Acid) 1 mg DAILY PO Last administered on 06/05/18at 08:08; Start 06/05/18 at 09:00 Insulin Glargine (Lantus) 35 units QHS SQ Last administered on 06/04/18at 21:11 ; Start 06/04/18 at 21:00 Methotrexate (Rheumatrex) 2.5 mg 06/04/18 PO Last administered on 06/04/18at 17 :04; Start 06/04/18 at 17:00; Stop 06/04/18 at 17:01; Status DC Famotidine (Pepcid) 20 mg BID PO Last administered on 06/05/18at 08:08; Start 06/04/18 at 21:00 Sodium Chloride 1,000 ml @ 125 mls/hr Q8H IV Last administered on 06/05/18at 08:11; Start 06/04/18 at 13:12; Stop 06/05/18 at 13:11; Status DC Insulin Human Lispro (HumaLOG) 0-9 UNITS TIDWMEALS SQ Last administered on at 12:51; Start 06/04/18 at 17:00 Dextrose (Dextrose 50%-Water Syringe) 12.5 gm PRN Q15MIN PRN IV SEE COMMENTS; Start 06/04/18 at 15:30 Dextrose 1,000 ml @ 75 mls/hr 1X ONCE IV Last administered on 06/05/18at 10: 30; Start 06/05/18 at 10:30; Stop 06/05/18 at 23:49 Insulin Human Lispro (HumaLOG) 5 units TIDWMEALS SQ Last administered on at 12:51; Start 06/05/18 at 12:30 Active Scripts Active Reported Methotrexate (Methotrexate Sodium) 2.5 Mg Tablet 2.5 Mg PO QSU Ranitidine Hcl 150 Mg Capsule 150 Mg PO BID Folic Acid 1 Mg Tablet 1 Mg PO DAILY Levemir (Insulin Detemir) 100 Unit/1 Ml Vial 35 Unit SQ HS Vitals/I & O Vital Sign - Last 24 Hours 06/04/18 06/04/18 06/04/18 06/04/18 14:37 14:45 16:40 19:00 Temp 98.6 98.4 98.6 98.4 Pulse 88 74 78 Resp 20 18 18 B/P (MAP) 133/76 (95) 110/70 (83) 119/69 (86) Pulse Ox 95 97 98 O2 Delivery Room Air Room Air Room Air Room Air 06/04/18 06/04/18 06/05/18 06/05/18 20:00 23:00 03:27 07:00 Temp 98.0 97.9 98.1 98.0 97.9 98.1 Pulse 81 75 66 Resp 17 18 18 B/P (MAP) 93/49 (64) 102/64 (77) 123/70 (87) Pulse Ox 97 100 99 O2 Delivery Room Air Room Air Room Air Room Air 06/05/18 06/05/18 08:00 11:00 Temp 97.7 97.7 Pulse 71 Resp 18 B/P (MAP) 104/53 (70) Pulse Ox 98 O2 Delivery Room Air Room Air Intake and Output 06/04/18 06/04/18 06/05/18 15:00 23:00 07:00 Intake Total 500 ml 50 ml 1500 ml Balance 500 ml 50 ml 1500 ml FLORY HICKMAN MD Jun 05, 2018 14:40
[2018-06-05 14:54] VITALS: BP 105/58
[2018-06-05 19:32] VITALS: BP 133/72
[2018-06-05 20:05] LABS: CALCIUM 8.9 mg/dL (8.5-10.1); CREATININE 0.7 mg/dL (0.6-1.0); GFR 85.9
[2018-06-05] MEDS: ENOXAPARIN 40 MG/0.4 ML SYRINGE. SQ SCH (20:37)
[2018-06-05] MEDS: INSULIN GLARGINE 300 UNITS/3 ML INSULN.PEN. SQ SCH (20:43)
[2018-06-05 23:03] VITALS: BP 113/55
[2018-06-06 03:45] VITALS: BP 126/69
[2018-06-06 03:55] LABS: BASO % 0 % (0-3); EOS # 0.1 x10^3/uL (0.0-0.7); EOS % 2 % (0-3); HEMATOCRIT 32.3 % (36.0-47.0); HEMOGLOBIN 11.5 g/dL (12.0-15.5); LYMPH # 1.8 x10^3/uL (1.0-4.8); LYMPH % 42 % (24-48); MEAN CORPUSCULAR HEMOGLOBIN 31 pg (25-35); MEAN CORPUSCULAR HGB CONC 36 g/dL (31-37); MEAN CORPUSCULAR VOLUME 86 fL (79-100); MONO # 0.3 x10^3/uL (0.0-1.1); MONO % 6 % (0-9); NEUT # 2.1 x10^3uL (1.8-7.7); NEUT % 49 % (31-73); PLATELET COUNT 222 x10^3/uL (140-400); RED BLOOD COUNT 3.75 x10^6/uL (3.50-5.40); RED CELL DISTRIBUTION WIDTH 13.4 % (11.5-14.5); WHITE BLOOD COUNT 4.3 x10^3/uL (4.0-11.0)
[2018-06-06 04:16] LABS: CALCIUM 8.9 mg/dL (8.5-10.1); CREATININE 0.7 mg/dL (0.6-1.0); GFR 85.9; POTASSIUM 4.4 mmol/L (3.5-5.1)
[2018-06-06 07:00] VITALS: BP 139/80
[2018-06-06] MEDS: FAMOTIDINE 20 MG TABLET. PO SCH (09:17)
[2018-06-06] MEDS: FOLIC ACID 1 MG TABLET. PO SCH (09:17)
[2018-06-06] MEDS: DOCUSATE SODIUM 100 MG CAPSULE. PO SCH (09:18)
[2018-06-06] MEDS: INSULIN LISPRO 300 UNITS/3 ML INSULN.PEN. SQ SCH ×2 (09:22→09:24)
--- NOTE | 2018-06-06 10:55 | PDOC ---
SUBJECTIVE ROS No Complaints, wants to go home , has to attend a . Son at bedside OBJECTIVE Vital Signs Vital Signs Date Time Temp Pulse Resp B/P (MAP) Pulse Ox O2 Delivery O2 Flow Rate FiO2 06/06/18 07:00 97.8 75 20 139/80 (99) 100 Room Air 97.8 I & 0 Intake and Output 06/06/18 07:00 Intake Total 1900 ml Balance 1900 ml Intake Oral 900 ml IV Total 1000 ml # Voids 5 PHYSICAL EXAM Physical Exam General: No acute distress HEENT: OM Moist Lungs: Clear to auscultation, Non Labored Heart: S1S2, RRR, Abdomen: Normal bowel sounds, Soft, No tenderness Extremities: No edema Skin: No rashes, Neuro: Grossly Normal DIAGNOSIS/ASSESSMENT Assessment & Plan Hyponatremia- Likely Pre-renal - sec to Fasting, Vomiting She was just discharged her 4 days ago for hyponatremia and suspected pneumonia Improved , Given D5W to Prevent Overcorrection Pt completely asymptomatic, Na stable Diabetes - Defer to Primary Discussed with RN and her son at bedside- Follow with PCP after Discharge COMMENT/RELEVANT DATA Meds Current Medications Medications (Trade) Dose Ordered Sig/Daron Start Time Stop Time Status Last Admin Dose Admin Acetaminophen (Tylenol) 650 mg PRN Q6HRS PRN 06/04/18 13:15 Al Hydroxide/Mg Hydroxide (Mylanta Plus Xs) 30 ml PRN Q3HRS PRN 06/04/18 13:15 Bisacodyl (Dulcolax Supp) 10 mg PRN DAILY PRN 06/04/18 13:15 Calcium Carbonate/ Glycine (Tums) 500 mg PRN Q3HRS PRN 06/04/18 13:15 Dextrose 1,000 ml @ 75 mls/hr 1X ONCE 06/05/18 23:51 06/06/18 13:10 06/06/18 01:07 75 MLS/HR Dextrose (Dextrose 50%-Water Syringe) 12.5 gm PRN Q15MIN PRN 06/04/18 15:30 Docusate Sodium (Colace) 100 mg BID 06/04/18 21:00 06/06/18 09:18 100 MG Enoxaparin Sodium (Lovenox 40mg Syringe) 40 mg Q24H 06/04/18 21:00 06/05/18 20:37 40 MG Famotidine (Pepcid) 20 mg BID 06/04/18 21:00 06/06/18 09:17 20 MG Folic Acid (Folic Acid) 1 mg DAILY 06/05/18 09:00 06/06/18 09:17 1 MG Ibuprofen (Motrin) 400 mg PRN Q6HRS PRN 06/04/18 13:15 Insulin Glargine (Lantus) 35 units QHS 06/04/18 21:00 06/05/18 20:43 35 UNITS Insulin Human Lispro (HumaLOG) 5 units TIDWMEALS 06/05/18 12:30 06/06/18 09:24 5 UNITS Magnesium Hydroxide (Milk Of Magnesia) 2,400 mg PRN Q12HR PRN 06/04/18 13:15 Methotrexate (Rheumatrex) 2.5 mg 06/04/18 06/04/18 17:00 06/04/18 17:01 DC 06/04/18 17:04 2.5 MG Morphine Sulfate (Morphine Sulfate) 1 mg PRN Q1HR PRN 06/04/18 13:15 Ondansetron HCl (Zofran) 4 mg PRN Q6HRS PRN 06/04/18 13:15 Oxycodone HCl (Roxicodone) 5 mg PRN Q3HRS PRN 06/04/18 13:15 Prochlorperazine (Compazine) 25 mg PRN Q12HR PRN 06/04/18 13:15 Prochlorperazine Edisylate (Compazine) 10 mg PRN Q6HRS PRN 06/04/18 13:15 Sodium Chloride 1,000 ml @ 125 mls/hr Q8H 06/04/18 13:12 06/05/18 13:11 DC 06/05/18 08:11 125 MLS/HR Lab Laboratory Tests Test 06/05/18 11:46 06/05/18 13:55 06/05/18 17:21 06/05/18 19:40 Glucose (Fingerstick) 249 mg/dL (70-99) 123 mg/dL (70-99) Sodium Level 141 mmol/L (136-145) 135 mmol/L (136-145) Potassium Level 4.9 mmol/L (3.5-5.1) 5.0 mmol/L (3.5-5.1) Chloride Level 105 mmol/L (98-107) 102 mmol/L (98-107) Carbon Dioxide Level 27 mmol/L (21-32) 28 mmol/L (21-32) Anion Gap 9 (6-14) 5 (6-14) Blood Urea Nitrogen 10 mg/dL (7-20) 12 mg/dL (7-20) Creatinine 0.7 mg/dL (0.6-1.0) 0.7 mg/dL (0.6-1.0) Estimated GFR (Cockcroft-Gault) 85.9 85.9 Glucose Level 168 mg/dL (70-99) 260 mg/dL (70-99) Calcium Level 9.0 mg/dL (8.5-10.1) 8.9 mg/dL (8.5-10.1) Test 06/05/18 20:36 06/06/18 03:05 06/06/18 07:38 Glucose (Fingerstick) 277 mg/dL (70-99) 170 mg/dL (70-99) White Blood Count 4.3 x10^3/uL (4.0-11.0) Red Blood Count 3.75 x10^6/uL (3.50-5.40) Hemoglobin 11.5 g/dL (12.0-15.5) Hematocrit 32.3 % (36.0-47.0) Mean Corpuscular Volume 86 fL (79-100) Mean Corpuscular Hemoglobin 31 pg (25-35) Mean Corpuscular Hemoglobin Concent 36 g/dL (31-37) Red Cell Distribution Width 13.4 % (11.5-14.5) Platelet Count 222 x10^3/uL (140-400) Neutrophils (%) (Auto) 49 % (31-73) Lymphocytes (%) (Auto) 42 % (24-48) Monocytes (%) (Auto) 6 % (0-9) Eosinophils (%) (Auto) 2 % (0-3) Basophils (%) (Auto) 0 % (0-3) Neutrophils # (Auto) 2.1 x10^3uL (1.8-7.7) Lymphocytes # (Auto) 1.8 x10^3/uL (1.0-4.8) Monocytes # (Auto) 0.3 x10^3/uL (0.0-1.1) Eosinophils # (Auto) 0.1 x10^3/uL (0.0-0.7) Basophils # (Auto) 0.0 x10^3/uL (0.0-0.2) Sodium Level 135 mmol/L (136-145) Potassium Level 4.4 mmol/L (3.5-5.1) Chloride Level 101 mmol/L (98-107) Carbon Dioxide Level 23 mmol/L (21-32) Anion Gap 11 (6-14) Blood Urea Nitrogen 9 mg/dL (7-20) Creatinine 0.7 mg/dL (0.6-1.0) Estimated GFR (Cockcroft-Gault) 85.9 Glucose Level 289 mg/dL (70-99) Calcium Level 8.9 mg/dL (8.5-10.1) Results All relevant outside records, renal labs, imaging studies, telemetry/EKG's were reviewed. CAIO GRUBER MD Jun 06, 2018 10:55
[2018-06-06 11:36] VITALS: BP 110/59
--- NOTE | 2018-06-06 12:48 | PDOC3 ---
Discharge Summary [facility] Date of Admission: Jun 04, 2018 Discharge Date: Jun 06, 2018 Admitting Diagnosis Critical Hyponatremia 115 Emesis multiple episodes x 1 day Fasting for 3ds Diabetes type 2 unknown hemoglobin A1c, on insulin Language barrier Recent pneumonia Grief - recent in family Final Diagnosis CONSULTS renal Brief Hospital Course Ms. Birmingham is a 57 old F, dm2. came for N/V. she was dced here 3ds ago for hyponatremia, and possible PNA. PT HAS a family member recently, for which she has been on fasting. also had N/V. pt was fund Na 115 this time, Na corrected to 133 overnight with NS. NS stopped , d5 added as per renal to prevent overcorrect. Na up to 141 after NS stopped and then drop to 135 with d5. pt feels good , no N/C, today is last day of FASTING . agree to stop fasting when go home. dc time 35min , told her son to see [facility] PCP next week to repeat BMP. General: Alert, Oriented X3, Cooperative, No acute distress Heart: Regular rate, Normal S1, Normal S2 Lungs: Clear Abdomen: Normal bowel sounds, Soft, No tenderness, No hepatosplenomegaly, No masses Extremities: No clubbing, No cyanosis, No edema, Normal pulses, No tenderness/ swelling Skin: No rashes, No breakdown, No significant lesion CONDITION AT DISCHARGE: Improved Scheduled Folic Acid (Folic Acid), 1 MG PO DAILY, (Reported) Insulin Detemir (Levemir), 35 UNIT SQ HS, (Reported) Methotrexate Sodium (Methotrexate), 2.5 MG PO QSU, (Reported) Ranitidine Hcl (Ranitidine Hcl), 150 MG PO BID, (Reported) Discontinued Medications Gabapentin (Gabapentin), 300 MG PO Q8HRS, (Reported) FLORY HICKMAN MD Jun 06, 2018 12:48
== END 2018-06-06 11:10 | disposition home or self-care (01) | DRG 640 ==
LOC: ER 11:40 → 5 SOUTH 13:17
PROVIDERS: ADMIT Internal Medicine; ATTEND Internal Medicine
DX: E87.1 Hypo-osmolality and hyponatremia (principal); J18.9 Pneumonia, unspecified organism; E11.65 Type 2 diabetes mellitus with hyperglycemia; K21.9 Gastro-esophageal reflux disease without esophagitis; I10 Essential (primary) hypertension; F43.21 Adjustment disorder with depressed mood; Z79.4 Long term (current) use of insulin; Z87.01 Personal history of pneumonia (recurrent); Z90.49 Acquired absence of other specified parts of digestive tract; Z82.49 Family history of ischemic heart disease and other diseases of the circulatory system
CPT/HCPCS: 36415; 80048; 80053; 81001; 82962; 83735; 84443; 85025; 96361; 96374; J1650; J1815; J2405; J7030; J7040; J8610; 97110; 97116; 99285-25

== ENCOUNTER 2018-10-17 20:02 | Emergency (ER) | payer OTHER ==
[~2018-10-17] VITALS: Ht 165.1 cm; Wt 54.4 kg
[~2018-10-17 20:02] MED LIST changes: -GABA-586 PO; +GABA300C18 PO; -LOSA25TA5 PO; +LOSA25TA54 PO
[2018-10-17] MEDS ORDERED: IV NORMAL SALINE 1000ML BAG 1,000 ML IV SCH (20:14)
[2018-10-17] MEDS ORDERED: ASPIRIN CHEWABLE 81 MG TABLET. PO ONE (20:15)
[2018-10-17 20:30] LABS: BASO % 0 % (0-3); EOS # 0.1 x10^3/uL (0.0-0.7); EOS % 2 % (0-3); HEMATOCRIT 34.4 % (36.0-47.0); HEMOGLOBIN 11.6 g/dL (12.0-15.5); LYMPH # 2.2 x10^3/uL (1.0-4.8); LYMPH % 37 % (24-48); MEAN CORPUSCULAR HEMOGLOBIN 29 pg (25-35); MEAN CORPUSCULAR HGB CONC 34 g/dL (31-37); MEAN CORPUSCULAR VOLUME 87 fL (79-100); MONO # 0.3 x10^3/uL (0.0-1.1); MONO % 5 % (0-9); NEUT # 3.4 x10^3uL (1.8-7.7); NEUT % 56 % (31-73); PLATELET COUNT 200 x10^3/uL (140-400); RED BLOOD COUNT 3.96 x10^6/uL (3.50-5.40); RED CELL DISTRIBUTION WIDTH 13.2 % (11.5-14.5); WHITE BLOOD COUNT 6.1 x10^3/uL (4.0-11.0)
[2018-10-17 20:36] LABS: CALCIUM 9.5 mg/dL (8.5-10.1); CREATININE 0.8 mg/dL (0.6-1.0); GFR 73.4
[2018-10-17 20:42] LABS: ALBUMIN 3.8 g/dL (3.4-5.0); ALBUMIN/GLOBULIN RATIO 1.1 (1.0-1.7); MAGNESIUM 1.3 mg/dL (1.8-2.4); TOTAL BILIRUBIN 0.3 mg/dL (0.2-1.0); TOTAL PROTEIN 7.2 g/dL (6.4-8.2)
--- NOTE | 2018-10-17 20:46 | PHYS DOC ---
Past Medical History Past Medical History: Abscess, Diabetes-Type II, GERD, Hypertension, Other Additional Past Medical Histor: hyponatremia Past Surgical History: Appendectomy, Other Additional Past Surgical Histo: bilateral eye Alcohol Use: None Drug Use: None Adult General Chief Complaint Chief Complaint: CHEST PAIN [facility] HPI Patient is a 58-year-old female who presents with complaint of midsternal chest pain associated with cough. Patient's symptoms have been present for the last 2- 3 days. She has had no fever. Patient has had no sputum with the cough. She states his symptoms are only worsened with coughing. Exertion does not affect the pain. She denies any shortness of breath. She describes pain as burning in the chest. Review of Systems Review of Systems Constitutional: Denies fever or chills [] Respiratory: Complains of cough without shortness of breath [] Cardiovascular: No additional information not addressed in HPI [] GI: Denies abdominal pain, nausea, vomiting or diarrhea [] Musculoskeletal: Denies back pain or joint pain [] Integument: Denies rash or skin lesions [] All other systems were reviewed and found to be within normal limits, except as documented in this note. Current Medications Current Medications Current Medications Medications (Trade) Dose Ordered Sig/Daron Start Time Stop Time Status Last Admin Dose Admin Aspirin (Children'S Aspirin) 324 mg 1X ONCE 10/17/18 20:15 10/17/18 20:19 DC 10/17/18 20:37 324 MG Sodium Chloride 1,000 ml @ 1,000 mls/hr Q1H 10/17/18 20:14 10/17/18 21:13 10/17/18 20:38 1,000 MLS/HR Allergies Allergies Allergies Coded Allergies Type Severity Reaction Last Updated Verified No Known Drug Allergies 09/23/13 No Physical Exam Physical Exam Constitutional: Well developed, well nourished, no acute distress, non-toxic appearance. [] HENT: Normocephalic, atraumatic, bilateral external ears normal, oropharynx moist, no oral exudates, nose normal. [] Eyes: PERRLA, EOMI, conjunctiva normal, no discharge. [] Neck: Normal range of motion, no tenderness, supple, no stridor. [] Cardiovascular: Regular rate and rhythm[] Lungs & Thorax: Bilateral breath sounds clear to auscultation [] Abdomen: Bowel sounds normal, soft, no tenderness. [] Skin: Warm, dry, no erythema, no rash. [] Extremities: No tenderness, no cyanosis, no clubbing, ROM intact, no edema. [] Neurologic: Alert and oriented X 3, no focal deficits noted. [] Current Patient Data Vital Signs Vital Signs Date Time Temp Pulse Resp B/P (MAP) Pulse Ox O2 Delivery O2 Flow Rate FiO2 10/17/18 20:09 97.8 76 22 165/78 (107) 98 Room Air 97.8 Lab Values Laboratory Tests Test 10/17/18 20:20 White Blood Count 6.1 x10^3/uL (4.0-11.0) Red Blood Count 3.96 x10^6/uL (3.50-5.40) Hemoglobin 11.6 g/dL (12.0-15.5) L Hematocrit 34.4 % (36.0-47.0) L Mean Corpuscular Volume 87 fL (79-100) Mean Corpuscular Hemoglobin 29 pg (25-35) Mean Corpuscular Hemoglobin Concent 34 g/dL (31-37) Red Cell Distribution Width 13.2 % (11.5-14.5) Platelet Count 200 x10^3/uL (140-400) Neutrophils (%) (Auto) 56 % (31-73) Lymphocytes (%) (Auto) 37 % (24-48) Monocytes (%) (Auto) 5 % (0-9) Eosinophils (%) (Auto) 2 % (0-3) Basophils (%) (Auto) 0 % (0-3) Neutrophils # (Auto) 3.4 x10^3uL (1.8-7.7) Lymphocytes # (Auto) 2.2 x10^3/uL (1.0-4.8) Monocytes # (Auto) 0.3 x10^3/uL (0.0-1.1) Eosinophils # (Auto) 0.1 x10^3/uL (0.0-0.7) Basophils # (Auto) 0.0 x10^3/uL (0.0-0.2) D-Dimer (Alicia) < 0.27 ug/mlFEU Sodium Level 137 mmol/L (136-145) Potassium Level 4.0 mmol/L (3.5-5.1) Chloride Level 99 mmol/L (98-107) Carbon Dioxide Level 26 mmol/L (21-32) Anion Gap 12 (6-14) Blood Urea Nitrogen 10 mg/dL (7-20) Creatinine 0.8 mg/dL (0.6-1.0) Estimated GFR (Cockcroft-Gault) 73.4 BUN/Creatinine Ratio 13 (6-20) Glucose Level 274 mg/dL (70-99) H Calcium Level 9.5 mg/dL (8.5-10.1) Magnesium Level 1.3 mg/dL (1.8-2.4) L Total Bilirubin 0.3 mg/dL (0.2-1.0) Aspartate Amino Transferase (AST) 15 U/L (15-37) Alanine Aminotransferase (ALT) 28 U/L (14-59) Alkaline Phosphatase 105 U/L (46-116) Troponin I Quantitative < 0.017 ng/mL (0.000-0.055) Total Protein 7.2 g/dL (6.4-8.2) Albumin 3.8 g/dL (3.4-5.0) Albumin/Globulin Ratio 1.1 (1.0-1.7) Lipase 205 U/L (73-393) Laboratory Tests 10/17/18 20:20 Laboratory Tests 10/17/18 20:20 EKG EKG [] Interpretation Time: EKG demonstrates normal sinus rhythm with rate of 74. Radiology/Procedures Radiology/Procedures [] Impressions: Chest x-ray demonstrates no acute process. Course & Med Decision Making Course & Med Decision Making Pertinent Labs and Imaging studies reviewed. (See chart for details) [] Dragon Disclaimer Dragon Disclaimer This electronic medical record was generated, in whole or in part, using a voice recognition dictation system. Departure Departure Impression: Primary Impression: Acute bronchitis Additional Impression: Chest wall pain Disposition: 01 HOME, SELF-CARE Condition: STABLE Referrals: ALYCIA HORTA MD (PCP) Patient Instructions: Acute Bronchitis, Chest Wall Pain Scripts Guaifenesin/Codeine Phosphate (CHERATUSSIN AC SYRUP) 118 Ml Liquid 5 ML PO PRN Q6HRS PRN for COUGH, #120 ML Prov: SUNDAY ESQUIVEL Jr. DO 10/17/18 Azithromycin (ZITHROMAX) 250 Mg Tablet 1 PKG PO UD, #6 TAB Prov: SUNDAY ESQUIVEL Jr. DO 10/17/18 Problem Qualifiers Primary Impression: Acute bronchitis Bronchitis organism: unspecified organism Qualified Codes: J20.9 - Acute bronchitis, unspecified SUNDAY ESQUIVEL Jr. DO Oct 17, 2018 20:46
[2018-10-17 21:08] VITALS: BP 153/76
[2018-10-17] MEDS ORDERED: GUAI118L20 PO (21:12)
[2018-10-17] MEDS ORDERED: AZIT250T PO (21:12)
--- NOTE | 2018-10-17 21:59 | RAD ---
PROCEDURE: PORTABLE CHEST 1V CLINICAL INDICATION: CHEST PAIN HX OF DIABETES COMPARISON: None FINDINGS: No pneumothorax identified. Cardiac and mediastinal contours unremarkable. No pulmonary consolidation or acute airspace disease. No acute osseous abnormalities identified. IMPRESSION: No pulmonary consolidation or acute airspace disease. Electronically signed by: Samson Haque DO (10/17/2018 9:56 PM) [facility]
--- NOTE | 2018-10-18 18:49 | EKG ---
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
[2019-01-15] MEDS ORDERED: SENN-121 PO (23:58)
[2019-01-15] MEDS ORDERED: MAGN296S9 PO (23:58)
== END 2018-10-17 21:30 | disposition home or self-care (01) ==
LOC: ER 20:02
DX: J20.9 Acute bronchitis, unspecified (principal); E11.9 Type 2 diabetes mellitus without complications; K21.9 Gastro-esophageal reflux disease without esophagitis; I10 Essential (primary) hypertension; Z90.89 Acquired absence of other organs
CPT/HCPCS: 36415; 71045; 80053; 83690; 83735; 84484; 85025; 85379; 93005; 99284; J7030

== ENCOUNTER 2019-03-29 15:04 | Emergency (ER) | payer OTHER ==
[~2019-03-29] VITALS: Ht 165.1 cm; Wt 54.4 kg
[~2019-03-29 15:04] MED LIST changes: +GUAI118L20 PO; +MAGN296S9 PO; +SENN-121 PO
[2019-03-29] MEDS ORDERED: IV NORMAL SALINE 1000ML BAG 1,000 ML IV ONE (15:30)
[2019-03-29] MEDS ORDERED: MECLIZINE HCL 12.5 MG TABLET. PO ONE (15:30)
[2019-03-29 15:31] LABS: BASO % 1 % (0-3); EOS # 0.2 x10^3/uL (0.0-0.7); EOS % 3 % (0-3); HEMATOCRIT 33.9 % (36.0-47.0); HEMOGLOBIN 11.7 g/dL (12.0-15.5); LYMPH # 1.6 x10^3/uL (1.0-4.8); LYMPH % 27 % (24-48); MEAN CORPUSCULAR HEMOGLOBIN 30 pg (25-35); MEAN CORPUSCULAR HGB CONC 35 g/dL (31-37); MEAN CORPUSCULAR VOLUME 86 fL (79-100); MONO # 0.3 x10^3/uL (0.0-1.1); MONO % 4 % (0-9); NEUT % 66 % (31-73); PLATELET COUNT 176 x10^3/uL (140-400); RED BLOOD COUNT 3.94 x10^6/uL (3.50-5.40); RED CELL DISTRIBUTION WIDTH 13.1 % (11.5-14.5)
--- NOTE | 2019-03-29 15:41 | PHYS DOC ---
Past Medical History Past Medical History: Abscess, Diabetes-Type II, GERD, Hypertension, Other Additional Past Medical Histor: hyponatremia (OLMAN VILLATORO APRN) Past Surgical History: Appendectomy, Other Additional Past Surgical Histo: bilateral eye (OLMAN VILLATORO APRN) Alcohol Use: None Drug Use: None (OLMAN VILLATORO APRN) Adult General Chief Complaint Chief Complaint: DIZZY/LIGHT HEADED HPI HPI Patient is a 58 year old female with a history of diabetes type 2, hypertension, acid reflex, who presents the ED today complaining of intermittent episodes of dizziness that began yesterday, symptoms are worse when he is feeding and trying to get up. Patient's also complaining of a chronic cough for months. Patient denies any chest pain, fever, headache, shortness of breath. Patient is in the ED with the son who was interpreting for Amharic (OLMAN VILLATORO APRN) Review of Systems Review of Systems Constitutional: Denies fever or chills [] Eyes: Denies change in visual acuity, redness, or eye pain [] HENT: Denies nasal congestion or sore throat [] Respiratory: Reports chronic cough, denies shortness of breath [] Cardiovascular: No additional information not addressed in HPI [] GI: Denies abdominal pain, nausea, vomiting, bloody stools or diarrhea [] : Denies dysuria or hematuria [] Musculoskeletal: Denies back pain or joint pain [] Integument: Denies rash or skin lesions [] Neurologic: Reports dizziness. Denies headache, focal weakness or sensory changes [] All other systems were reviewed and found to be within normal limits, except as documented in this note. (OLMAN VILLATORO APRN) Current Medications Current Medications Current Medications Medications (Trade) Dose Ordered Sig/Daron Start Time Stop Time Status Last Admin Dose Admin Magnesium Sulfate/ Dextrose 100 ml @ 25 mls/hr 1X ONCE 03/29/19 17:00 03/29/19 18:23 DC 03/29/19 17:11 25 MLS/HR Meclizine HCl (Antivert) 25 mg 1X ONCE 03/29/19 15:30 03/29/19 15:31 DC 03/29/19 15:43 25 MG Sodium Chloride 1,000 ml @ 1,000 mls/hr 1X ONCE 03/29/19 15:30 03/29/19 16:29 DC 03/29/19 15:43 1,000 MLS/HR (ALIREZA MARION DO) Allergies Allergies Allergies Coded Allergies Type Severity Reaction Last Updated Verified No Known Drug Allergies 09/23/13 No (ALIREZA MARION DO) Physical Exam Physical Exam Constitutional: Well developed, well nourished, no acute distress, non-toxic appearance. [] HENT: Normocephalic, atraumatic, bilateral external ears normal, oropharynx moist, no oral exudates, nose normal. [] Eyes: PERRLA, EOMI, conjunctiva normal, no discharge. [] Neck: Normal range of motion, no tenderness, supple, no stridor. [] Cardiovascular:Heart rate regular rhythm, no murmur [] Lungs & Thorax: Bilateral breath sounds clear to auscultation [] Abdomen: Bowel sounds normal, soft, no tenderness, no masses, no pulsatile masses. [] Skin: Warm, dry, no erythema, no rash. [] Back: No tenderness, no CVA tenderness. [] Extremities: No tenderness, no cyanosis, no clubbing, ROM intact, no edema. [] Neurologic: Alert and oriented X 3, normal motor function, normal sensory function, no focal deficits noted. [] Psychologic: Affect normal, judgement normal, mood normal. [] (OLMAN VILLATORO APRN) Current Patient Data Vital Signs Vital Signs Date Time Temp Pulse Resp B/P (MAP) Pulse Ox O2 Delivery O2 Flow Rate FiO2 03/29/19 17:31 82 03/29/19 15:52 16 99 03/29/19 15:15 98.5 154/70 (98) Room Air 98.5 (ALIREZA MARION DO) Lab Values Laboratory Tests Test 03/29/19 15:21 White Blood Count 6.0 x10^3/uL (4.0-11.0) Red Blood Count 3.94 x10^6/uL (3.50-5.40) Hemoglobin 11.7 g/dL (12.0-15.5) L Hematocrit 33.9 % (36.0-47.0) L Mean Corpuscular Volume 86 fL (79-100) Mean Corpuscular Hemoglobin 30 pg (25-35) Mean Corpuscular Hemoglobin Concent 35 g/dL (31-37) Red Cell Distribution Width 13.1 % (11.5-14.5) Platelet Count 176 x10^3/uL (140-400) Neutrophils (%) (Auto) 66 % (31-73) Lymphocytes (%) (Auto) 27 % (24-48) Monocytes (%) (Auto) 4 % (0-9) Eosinophils (%) (Auto) 3 % (0-3) Basophils (%) (Auto) 1 % (0-3) Neutrophils # (Auto) 4.0 x10^3/uL (1.8-7.7) Lymphocytes # (Auto) 1.6 x10^3/uL (1.0-4.8) Monocytes # (Auto) 0.3 x10^3/uL (0.0-1.1) Eosinophils # (Auto) 0.2 x10^3/uL (0.0-0.7) Basophils # (Auto) 0.0 x10^3/uL (0.0-0.2) Sodium Level 135 mmol/L (136-145) L Potassium Level 4.2 mmol/L (3.5-5.1) Chloride Level 99 mmol/L (98-107) Carbon Dioxide Level 27 mmol/L (21-32) Anion Gap 9 (6-14) Blood Urea Nitrogen 12 mg/dL (7-20) Creatinine 0.8 mg/dL (0.6-1.0) Estimated GFR (Cockcroft-Gault) 73.4 BUN/Creatinine Ratio 15 (6-20) Glucose Level 307 mg/dL (70-99) H Calcium Level 9.4 mg/dL (8.5-10.1) Magnesium Level 1.1 mg/dL (1.8-2.4) L Total Bilirubin 0.5 mg/dL (0.2-1.0) Aspartate Amino Transferase (AST) 23 U/L (15-37) Alanine Aminotransferase (ALT) 44 U/L (14-59) Alkaline Phosphatase 86 U/L (46-116) Creatine Kinase 80 U/L (26-192) Creatine Kinase MB (Mass) 1.6 ng/mL (0.0-3.6) Creatine Kinase MB Relative Index 2.0 % (0-4) Troponin I Quantitative < 0.017 ng/mL (0.000-0.055) PS-Wgi-X-Type Natriuretic Peptide 35 pg/mL (0-124) Total Protein 7.2 g/dL (6.4-8.2) Albumin 3.7 g/dL (3.4-5.0) Albumin/Globulin Ratio 1.1 (1.0-1.7) Thyroid Stimulating Hormone (TSH) 7.298 uIU/mL (0.358-3.74) H Laboratory Tests 03/29/19 15:21 Laboratory Tests 03/29/19 15:21 (ALIREZA MARION DO) EKG EKG [address] Lebron sinus rhythm HR 81 no STEMI[] (SHAUNAOLMAN SUPERVISOR PASTRY) Radiology/Procedures Radiology/Procedures []PROCEDURE: PORTABLE CHEST 1V EXAM: Chest, single view. HISTORY: Dizziness. COMPARISON: 10/17/2018 FINDINGS: A frontal view of the chest is obtained. There is no infiltrate, pleural effusion or pneumothorax. The heart is normal in size. IMPRESSION: No acute pulmonary finding. Electronically signed by: Jaky Mckeon MD (03/29/2019 3:38 PM) [place] [id number] DICTATED and SIGNED BY: JAKY MCKEON MD DATE: 03/29/19 1538 PROCEDURE: CT HEAD WO CONTRAST EXAM: Head CT without contrast. HISTORY: Dizziness. TECHNIQUE: Computed tomographic images of the head were obtained without contrast.. *One or more of the following individualized dose reduction techniques were utilized for this examination: 1. Automated exposure control. 2. Adjustment of the mA and/or kV according to patient size. 3. Use of iterative reconstruction technique. COMPARISON: None. FINDINGS: There is no acute or subacute extra-axial or intraparenchymal hemorrhage. There is no mass effect or midline shift. There is no hydrocephalus. There are areas of decreased attenuation within the cerebral white matter, nonspecific and likely related to chronic small vessel disease. There is mild cerebral volume loss. There is left maxillary sinus mucosal thickening and sinus wall thickening due to chronic sinusitis. There is also mild ethmoid sinus mucosal thickening and there is a tiny air-fluid level or mucosal thickening involving the sphenoid sinus. The mastoid air cells are clear. There is evidence of lens surgery. IMPRESSION: No acute intracranial finding. Note is made that MRI is more sensitive for acute infarction. Electronically signed by: Jaky Mckeon MD (03/29/2019 3:38 PM) [facility] DICTATED and SIGNED BY: JAKY MCKEON MD DATE: 03/29/19 1538 (OLMAN VILLATORO APRN) Course & Med Decision Making Course & Med Decision Making Pertinent Labs and Imaging studies reviewed. (See chart for details) This is a 58-year-old female patient presenting to the ED today with complaints of dizziness since yesterday as well as a chronic cough. Patient was given 1 L of IV fluid and meclizine on arrival to the ED. Feeling better. CT of the head is negative, Chest xray is negative. EKG was negative, troponin is normal. CBC with no acute findings, CMP with magnesium of 1.1 patient was started on IV magnesium, glucose of 307 anion gap is normal hx of DM Patient's IV magnesium is infusing. Family is requesting we discharge her home. D/c on oral Magnesium. She was also discharged on meclizine. Instructed to push fluids. Follow-up with PCP in the course of next week. (OLMAN VILLATORO APRN) Dragon Disclaimer Dragon Disclaimer This electronic medical record was generated, in whole or in part, using a voice recognition dictation system. (OLMAN VILLATORO APRN) Departure Departure Impression: Primary Impression: Vertigo Additional Impressions: Cough Hypomagnesemia Hyperglycemia Disposition: 01 HOME, SELF-CARE Condition: STABLE Referrals: ALYCIA HORTA MD (PCP) follow up next week Patient Instructions: Cough, Adult, [id number], Vertigo, [id number] Additional Instructions: You were elevated in the emergency room for dizziness. Take the prescribed medication as needed for dizziness. Your magnesium is low take the oral magnesium as ordered. Increase your dietary magnesium intake through foods like green leafy vegetables, nuts. Please ensure you are taking your diabetes medicine Scripts Meclizine Hcl (MECLIZINE HCL) 25 Mg Tablet 1 TAB PO TID PRN for DIZZINESS, #30 TAB Prov: OLMAN VILLATORO APRN 03/29/19 Magnesium Oxide (MAG-OXIDE) 400 Mg Tablet 1 TAB PO BID, #20 TAB 0 Refills Prov: OLMAN VILLATORO APRN 03/29/19 Attending Signature Attending Signature I have reviewed the PA/VISCOSE CELLAR CHARGE HAND's note and plan of care. I was available for consultation as needed during the patient's visit in the emergency department. I agree with the clinical impression, plan, and disposition. (ALIREZA MARION DO) Problem Qualifiers OLMAN VILLATORO SUPERVISOR PASTRY Mar 29, 2019 15:41 ALIREZA MARION DO Apr 02, 2019 15:41
[2019-03-29 15:44] LABS: CALCIUM 9.4 mg/dL (8.5-10.1); CREATININE 0.8 mg/dL (0.6-1.0); GFR 73.4; POTASSIUM 4.2 mmol/L (3.5-5.1)
[2019-03-29 15:50] LABS: ALBUMIN 3.7 g/dL (3.4-5.0); ALBUMIN/GLOBULIN RATIO 1.1 (1.0-1.7); MAGNESIUM 1.1 mg/dL (1.8-2.4); TOTAL BILIRUBIN 0.5 mg/dL (0.2-1.0); TOTAL PROTEIN 7.2 g/dL (6.4-8.2)
--- NOTE | 2019-03-29 16:30 | EKG ---
[facility] [address] [place] [address] Test Date: 2019-03-29 Test Time: 15:15:01 Pat Name: SANTIAGO CARLISLE Department: Room: Gender: F L Tacker: : 1960 Requested By: OLMAN VILLATORO Order Number: [id number] Reading MD: Measurements Intervals [place] Rate: 81 P: 63 DE: 168 QRS: 26 QRSD: 72 T: 61 QT: 360 QTc: 419 Interpretive Statements SINUS RHYTHM QRS(T) CONTOUR ABNORMALITY CONSIDER ANTEROLATERAL MYOCARDIAL DAMAGE POSSIBLY ABNORMAL ECG RI6.01 Unconfirmed report No previous ECG available for comparison
[2019-03-29] MEDS ORDERED: MAGNESIUM SULFATE 4GM 100 ML IV ONE (17:00)
[2019-03-29 17:31] VITALS: BP 134/80
[2019-03-29] MEDS ORDERED: MECL25TA3 PO (18:05)
[2019-03-29] MEDS ORDERED: MAGN400T22 PO (18:05)
== END 2019-03-29 18:15 | disposition home or self-care (01) ==
LOC: ER 15:04
DX: R42 Dizziness and giddiness (principal); R05 Cough; E83.42 Hypomagnesemia; E11.65 Type 2 diabetes mellitus with hyperglycemia; I10 Essential (primary) hypertension; K21.9 Gastro-esophageal reflux disease without esophagitis
CPT/HCPCS: 36415; 70450; 71045; 80053; 82553; 83735; 83880; 84443; 84484; 85025; 93005; 96361; 96365; 99285; J3475; J7030; J8597

== ENCOUNTER 2019-07-26 10:18 | Emergency (ER) | payer OTHER ==
[~2019-07-26] VITALS: Ht 162.6 cm; Wt 54.4 kg
[~2019-07-26 10:18] MED LIST changes: -ACET500T55 PO; +ACET500T56 PO; +MAGN400T22 PO; +MECL25TA3 PO; +OMEP40CA45 PO; -OMEP40CA5 PO
[2019-07-26 10:49] VITALS: BP 152/77
[2019-07-26] MEDS ORDERED: BENZ100C PO (11:52)
[2019-07-26] MEDS ORDERED: AZIT250T6 PO (11:52)
--- NOTE | 2019-07-26 11:52 | PHYS DOC ---
Past Medical History Past Medical History: Abscess, Diabetes-Type I, GERD, Hypertension, Other Additional Past Medical Histor: hyponatremia Past Surgical History: Appendectomy, Other Additional Past Surgical Histo: bilateral eye Alcohol Use: None Drug Use: None Adult General Chief Complaint Chief Complaint: COUGH HPI HPI Patient is a 58 year old female, accompanied by her family, who presents to the emergency department with complaints of a dry cough for the last 2 weeks. Patient also reports dryness of her nose. She denies any chest pain, palpitations, shortness of breath, nausea, vomiting, diarrhea, ear pain, wheezing, or body aches. The patient states her upper abdomen hurts when she coughs. She states she has been having problems with frequent coughs for the last 5 months. Patient reports a history of diabetes type 1, high blood pressure, and GERD. She denies any headache, dizziness, or sore throat. Patient denies problems with her GERD. She currently denies any pain. All other ROS is neg unless otherwise noted in HPI. Review of Systems Review of Systems See Above Allergies Allergies Allergies Coded Allergies Type Severity Reaction Last Updated Verified No Known Drug Allergies 09/23/13 No Physical Exam Physical Exam See Above Constitutional: Well developed, well nourished, no acute distress, non-toxic appearance. [] HENT: Normocephalic, atraumatic, bilateral external ears normal, bilateral TMs normal, posterior pharynx normal, oropharynx moist, no oral exudates, nasal turbinates erythematous bilaterally with Eyes: PERRLA, EOMI, conjunctiva normal, no discharge. [] Neck: Normal range of motion, no tenderness, supple, no stridor. [] Cardiovascular:Heart rate regular rhythm, no murmur [] Lungs & Thorax: Bilateral breath sounds clear to auscultation on a regular rate, no retractions [] Abdomen: soft, no tenderness, no masses, no pulsatile masses. [] Skin: Warm, dry, no erythema, no rash. [] Back: No tenderness Extremities: No cyanosis, ROM intact Neurologic: Alert and oriented X 3, no focal deficits noted. [] Psychologic: Affect normal, judgement normal, mood normal. [] Current Patient Data Vital Signs Vital Signs Date Time Temp Pulse Resp B/P (MAP) Pulse Ox O2 Delivery O2 Flow Rate FiO2 07/26/19 10:49 97.9 68 18 152/77 (102) 97 Room Air 97.9 EKG EKG [] Radiology/Procedures Radiology/Procedures [] Course & Med Decision Making Course & Med Decision Making Pertinent Labs and Imaging studies reviewed. (See chart for details) [] Dragon Disclaimer Dragon Disclaimer This electronic medical record was generated, in whole or in part, using a voice recognition dictation system. Departure Departure Impression: Primary Impression: Cough Disposition: HOME, SELF-CARE Condition: STABLE Referrals: ALYCIA HORTA MD (PCP) Patient Instructions: Cough, Adult, [id number] Additional Instructions: Fill prescription(s) and use as directed. Recommend use of a Cool mist humidifier in room at bedtime. Alternate Tylenol or ibuprofen as needed for pain/fever. Increase clear fluids. Avoid airway triggers such as smoke, fragrance, dust, and pollen. May take [id number] cough suppressants as needed. Follow-up with your primary care doctor next week, frequent cough can also be associated with GERD, return to the ER if symptoms worsen. Scripts Benzonatate (TESSALON PERLE) 100 Mg Capsule 1 CAP PO TID PRN for COUGH for 7 Days, #21 CAP 0 Refills Prov: JASON LIM [employer]GER [employer] 07/26/19 Azithromycin (AZITHROMYCIN TABLET) 250 Mg Tablet 1 PKG PO UD for 5 Days, #6 TAB 0 Refills 2 the first day followed by 1 for days 2-5 Prov: JASON LIM [employer]NAGER [employer] 07/26/19 JASON LIM MANAGER [employer] Jul 26, 2019 11:52
== END 2019-07-26 12:23 | disposition home or self-care (01) ==
LOC: ER 10:18
DX: R05 Cough (principal); R10.10 Upper abdominal pain, unspecified; K21.9 Gastro-esophageal reflux disease without esophagitis; I10 Essential (primary) hypertension; E10.9 Type 1 diabetes mellitus without complications; Z90.89 Acquired absence of other organs
CPT/HCPCS: 99283

== ENCOUNTER 2019-09-09 17:07 | Emergency (ER) | payer OTHER ==
[~2019-09-09] VITALS: Ht 165.1 cm; Wt 54.4 kg
[~2019-09-09 17:07] MED LIST changes: +AZIT250T6 PO; +BENZ100C PO; +MAGN296S68 PO; -MAGN296S9 PO; +MECL-75 PO; -MECL25TA3 PO
[2019-09-09 17:10] VITALS: BP 168/74
[2019-09-09 17:26] LABS: BILIRUBIN,URINE NEGATIVE (NEG); CLARITY,URINE CLEAR; COLOR,URINE YELLOW; NITRITE,URINE NEGATIVE (NEG); PROTEIN,URINE NEGATIVE (NEG-TRACE); UROBILINOGEN,URINE 0.2 mg/dL (0.2 mg/dL)
[2019-09-09 17:30] LABS: RBC,URINE 0 /HPF (0-2)
[2019-09-09 17:31] LABS: BACTERIA,URINE FEW /HPF (0-FEW); SQUAMOUS EPITHELIAL CELL,UR FEW /LPF
[2019-09-09] MEDS ORDERED: CEPH-264 PO (17:37)
--- NOTE | 2019-09-09 17:37 | PHYS DOC ---
Past Medical History Past Medical History: Abscess, Diabetes-Type I, GERD, Hypertension, Other Additional Past Medical Histor: hyponatremia Past Surgical History: Appendectomy, Other Additional Past Surgical Histo: bilateral eye Alcohol Use: None Drug Use: None Adult General Chief Complaint Chief Complaint: PAIN ON URINATION [facility] Patient is a 58 year old female who presents with dysuria this started this afternoon and frequency. Denies fevers, or any other symptoms. Complete ROS were reviewed and found to be within normal limits, except as documented in the [facility] Allergies Allergies Allergies Coded Allergies Type Severity Reaction Last Updated Verified No Known Drug Allergies 09/23/13 No Physical Exam Physical Exam Constitutional: Well developed, well nourished, no acute distress, non-toxic ap pearance. [] HENT: Normocephalic, atraumatic, bilateral external ears normal, oropharynx moist, no oral exudates, nose normal. [] Eyes: PERRLA, EOMI, conjunctiva normal, no discharge. [] Neurologic: Alert and oriented X 3, normal motor function, normal sensory function, no focal deficits noted. [] Psychologic: Affect normal, judgement normal, mood normal. [] Current Patient Data Vital Signs Vital Signs Date Time Temp Pulse Resp B/P (MAP) Pulse Ox O2 Delivery O2 Flow Rate FiO2 09/09/19 17:10 98.2 63 14 168/74 (105) 94 Room Air 98.2 Lab Values Laboratory Tests Test 09/09/19 17:17 Urine Collection Type Unknown Urine Color Yellow Urine Clarity Clear Urine pH 7.0 Urine Specific [place] <=1.005 Urine Protein Negative mg/dL (NEG-TRACE) Urine Glucose (UA) Negative mg/dL (NEG) Urine Ketones (Stick) Negative mg/dL (NEG) Urine Blood Negative (NEG) Urine Nitrite Negative (NEG) Urine Bilirubin Negative (NEG) Urine Urobilinogen Dipstick 0.2 mg/dL (0.2 mg/dL) Urine Leukocyte Esterase Trace (NEG) Urine RBC 0 /HPF (0-2) Urine WBC 11-20 /HPF (0-4) Urine Squamous Epithelial Cells Few /LPF Urine Bacteria Few /HPF (0-FEW) EKG EKG [] Radiology/Procedures Radiology/Procedures [] Course & Med Decision Making Course & Med Decision Making Pertinent Labs and Imaging studies reviewed. (See chart for details) UA shows leukocytes and bacteria. Will place on Keflex. Dragon Disclaimer Dragon Disclaimer This electronic medical record was generated, in whole or in part, using a voice recognition dictation system. Departure Departure Impression: Primary Impression: Urinary tract infection Disposition: 01 HOME, SELF-CARE Condition: STABLE Referrals: ALYCIA HORTA MD (PCP) Patient Instructions: Urinary Tract Infection Additional Instructions: Thank you for visiting [facility]. We appreciate you trusting us with your care. If any additional problems come up don't hesitate to return to visit us. Please follow up with your primary care provider so they can plan additional care if needed and know about the problem that you had. If symptoms worsen come back to the Emergency Department. Any concerning symptoms that start such as chest pain, shortness of air, weakness or numbness on one side of the body, running high fevers or any other concerning symptoms return to the ER. You have been prescribed an antibiotic today to help fight your infection. Please take all of the antibiotic as directed. If after 48 hours the infection is not improving, please return for more care. If the infection worsens, return to ER for additional care. Scripts Cephalexin (KEFLEX) 500 Mg Capsule 1 CAP PO BID for 7 Days, #14 CAP 0 Refills Prov: ALIREZA RAMSEY APRN 09/09/19 Problem Qualifiers Primary Impression: Urinary tract infection Urinary tract infection type: acute cystitis Hematuria presence: without hematuria Qualified Codes: N30.00 - Acute cystitis without hematuria ALIREZA RAMSEY APRN Sep 09, 2019 17:37
== END 2019-09-09 17:41 | disposition home or self-care (01) ==
LOC: ER 17:07
DX: N30.00 Acute cystitis without hematuria (principal); E10.9 Type 1 diabetes mellitus without complications; K21.9 Gastro-esophageal reflux disease without esophagitis; I10 Essential (primary) hypertension; Z90.89 Acquired absence of other organs
CPT/HCPCS: 81001; 87086; 87186; 99284

== ENCOUNTER 2019-09-27 20:42 | Observation (INO) | payer OTHER ==
[~2019-09-27] VITALS: Ht 165.1 cm; Wt 53.6 kg
[~2019-09-27 20:42] MED LIST changes: +CEPH-264 PO
[2019-09-27 21:57] LABS: BASO % 0 % (0-3); EOS # 0.3 x10^3/uL (0.0-0.7); EOS % 4 % (0-3); HEMATOCRIT 35.2 % (36.0-47.0); LYMPH # 1.4 x10^3/uL (1.0-4.8); LYMPH % 23 % (24-48); MEAN CORPUSCULAR HEMOGLOBIN 29 pg (25-35); MEAN CORPUSCULAR HGB CONC 34 g/dL (31-37); MEAN CORPUSCULAR VOLUME 85 fL (79-100); MONO # 0.5 x10^3/uL (0.0-1.1); MONO % 8 % (0-9); NEUT % 64 % (31-73); PLATELET COUNT 181 x10^3/uL (140-400); RED BLOOD COUNT 4.15 x10^6/uL (3.50-5.40); RED CELL DISTRIBUTION WIDTH 12.8 % (11.5-14.5); WHITE BLOOD COUNT 6.2 x10^3/uL (4.0-11.0)
--- NOTE | 2019-09-27 21:58 | PHYS DOC ---
Past Medical History Past Medical History: Abscess, Diabetes-Type I, GERD, Hypertension, Other Additional Past Medical Histor: hyponatremia Past Surgical History: Appendectomy, Other Additional Past Surgical Histo: bilateral eye Smoking Status: Current Every Day Smoker Alcohol Use: None Drug Use: None Adult General Chief Complaint Chief Complaint: NAUSEA/VOMITING/DIARRHA HPI HPI 58-year-old female presents to the emergency department with complaints of vomiting, dizziness since yesterday. She as well describes nausea, epigastric and right lower quadrant pain. Patient has underlying history of hypertension, insulin-dependent diabetes. She describes the pain as a sharp sensation, states it comes and goes. Nothing makes her pain worse, nothing makes her pain better. Review of Systems Review of Systems Constitutional: Denies fever or chills [] Respiratory: Denies cough or shortness of breath [] Cardiovascular: No additional information not addressed in HPI [] GI: + abdominal pain, nausea, vomiting, no bloody stools or diarrhea [] : Denies dysuria or hematuria [] Musculoskeletal: Denies back pain or joint pain [] Integument: Denies rash or skin lesions [] Neurologic: Denies headache, focal weakness or sensory changes, + dizziness [] All other systems were reviewed and found to be within normal limits, except as documented in this note. Current Medications Current Medications Current Medications Medications (Trade) Dose Ordered Sig/Daron Start Time Stop Time Status Last Admin Dose Admin Fentanyl Citrate (Fentanyl 2ml Vial) 25 mcg 1X ONCE 09/27/19 22:00 2 22:01 DC 09/27/19 22:11 25 MCG Info (CONTRAST GIVEN -- Rx MONITORING) 1 each PRN DAILY PRN 09/27/19 22:45 09/29/19 22:44 Iohexol (Omnipaque 300 Mg/ml) 100 ml STK-MED ONCE 09/27/19 22:38 09/27/19 22:38 DC Ondansetron HCl (Zofran) 4 mg 1X ONCE 09/27/19 22:00 09/27/19 22:01 DC 09/27/19 22:11 4 MG Sodium Chloride 1,000 ml @ 1,000 mls/hr Q1H 09/27/19 22:00 09/27/19 22:59 DC 09/27/19 22:11 1,000 MLS/HR Allergies Allergies Allergies Coded Allergies Type Severity Reaction Last Updated Verified No Known Drug Allergies 09/23/13 No Physical Exam Physical Exam Constitutional: Well developed, well nourished, mild distress, non-toxic appearance. [] HENT: Normocephalic, atraumatic, bilateral external ears normal, oropharynx moist, no oral exudates, nose normal. [] Eyes: PERRLA, EOMI, conjunctiva normal, no discharge. [] Cardiovascular:Heart rate regular rhythm, no murmur [] Lungs & Thorax: Bilateral breath sounds clear to auscultation [] Abdomen: Bowel sounds normal, soft, TTP epigastric and RLQ pain with palpation, minimal rebound, no masses, no pulsatile masses. [] Skin: Warm, dry, no erythema, no rash. [] Back: No tenderness, no CVA tenderness. [] Extremities: No tenderness, no edema. [] Neurologic: Alert and oriented X 3, no focal deficits noted. [] Psychologic: Affect normal, judgement normal, mood normal. [] Current Patient Data Vital Signs Vital Signs Date Time Temp Pulse Resp B/P (MAP) Pulse Ox O2 Delivery O2 Flow Rate FiO2 09/27/19 22:59 76 18 131/75 (93) 95 Room Air 09/27/19 20:55 97.5 97.5 Lab Values Laboratory Tests Test 09/27/19 21:00 09/27/19 21:10 09/27/19 22:10 White Blood Count 6.2 x10^3/uL (4.0-11.0) Red Blood Count 4.15 x10^6/uL (3.50-5.40) Hemoglobin 12.0 g/dL (12.0-15.5) Hematocrit 35.2 % (36.0-47.0) L Mean Corpuscular Volume 85 fL (79-100) Mean Corpuscular Hemoglobin 29 pg (25-35) Mean Corpuscular Hemoglobin Concent 34 g/dL (31-37) Red Cell Distribution Width 12.8 % (11.5-14.5) Platelet Count 181 x10^3/uL (140-400) Neutrophils (%) (Auto) 64 % (31-73) Lymphocytes (%) (Auto) 23 % (24-48) L Monocytes (%) (Auto) 8 % (0-9) Eosinophils (%) (Auto) 4 % (0-3) H Basophils (%) (Auto) 0 % (0-3) Neutrophils # (Auto) 4.0 x10^3/uL (1.8-7.7) Lymphocytes # (Auto) 1.4 x10^3/uL (1.0-4.8) Monocytes # (Auto) 0.5 x10^3/uL (0.0-1.1) Eosinophils # (Auto) 0.3 x10^3/uL (0.0-0.7) Basophils # (Auto) 0.0 x10^3/uL (0.0-0.2) Sodium Level 130 mmol/L (136-145) L Potassium Level 4.1 mmol/L (3.5-5.1) Chloride Level 93 mmol/L (98-107) L Carbon Dioxide Level 24 mmol/L (21-32) Anion Gap 13 (6-14) Blood Urea Nitrogen 14 mg/dL (7-20) Creatinine 1.0 mg/dL (0.6-1.0) Estimated GFR (Cockcroft-Gault) 56.7 BUN/Creatinine Ratio 14 (6-20) Glucose Level 217 mg/dL (70-99) H Calcium Level 9.2 mg/dL (8.5-10.1) Total Bilirubin 0.6 mg/dL (0.2-1.0) Aspartate Amino Transferase (AST) 31 U/L (15-37) Alanine Aminotransferase (ALT) 45 U/L (14-59) Alkaline Phosphatase 88 U/L (46-116) Troponin I Quantitative < 0.017 ng/mL (0.000-0.055) Total Protein 7.8 g/dL (6.4-8.2) Albumin 4.1 g/dL (3.4-5.0) Albumin/Globulin Ratio 1.1 (1.0-1.7) Lipase 146 U/L (73-393) Acetone Level Neg (NEG) Urine Collection Type Unknown Urine Color Yellow Urine Clarity Clear Urine pH 6.0 Urine Specific [place] 1.010 Urine Protein Negative mg/dL (NEG-TRACE) Urine Glucose (UA) Negative mg/dL (NEG) Urine Ketones (Stick) Negative mg/dL (NEG) Urine Blood Negative (NEG) Urine Nitrite Negative (NEG) Urine Bilirubin Negative (NEG) Urine Urobilinogen Dipstick 0.2 mg/dL (0.2 mg/dL) Urine Leukocyte Esterase Negative (NEG) Urine RBC 0 /HPF (0-2) Urine WBC 0 /HPF (0-4) Urine Squamous Epithelial Cells Few /LPF Urine Bacteria 0 /HPF (0-FEW) Lactic Acid Level 5.8 mmol/L (0.4-2.0) *H Laboratory Tests 09/27/19 21:00 Laboratory Tests 09/27/19 21:00 EKG EKG EKG reviewed, interpretation time 2205, normal sinus rhythm, normal axis, heart rate 74 no STEMI[] Radiology/Procedures Radiology/Procedures [facility] [address] [place], [place] [id number] IMAGING REPORT Signed PATIENT: SANTIAGO CARLISLE ACCOUNT: [id number] : 1960 LOCATION: ER AGE: 58 SEX: F EXAM STATUS: REG ER ORD. PHYSICIAN: DEMETRIO BONNER MD REASON: abdominal pain, right lower quadrant, nauesa with vomiting PROCEDURE: CT ABD PELV W/ IV CONTRST ONLY EXAM: CT Abdomen and Pelvis with IV contrast CLINICAL HISTORY: Right lower quadrant pain. COMPARISON: 01/15/2019 TECHNIQUE: Helical CT of the abdomen and pelvis was performed following the administration of intravenous contrast. Axial, coronal and sagittal reformatted images were generated. PQRS compliance statement - One or more of the following individualized dose reduction techniques were utilized for this study: 1. Automated exposure control 2. Adjustment of the mA and/or kV according to patient size 3. Use of iterative reconstruction technique FINDINGS: Lower chest: Linear patchy opacities lower lobes likely scarring/atelectasis. Abdomen and Pelvis: Focal low-attenuation along the falciform ligament likely focal fatty infiltration. Spleen is unremarkable. Gallbladder is normal. No biliary ductal dilatation. Pancreas is unremarkable. Symmetric nephrograms. Subcentimeter hypodense left upper pole renal lesion too small to accurately characterize. No hydronephrosis or hydroureter. Bladder is markedly distended. Uterus and adnexa are grossly unremarkable. Moderate colonic stool content is seen. Appendix is not convincingly seen. No significant right lower quadrant inflammatory changes are seen. Aortic calcifications are seen. No abdominal or pelvic ascites. No abdominal or pelvic lymphadenopathy. Bones: Straightening of the normal lordosis. No spondylolisthesis. No aggressive osseous lesion is seen. IMPRESSION: 1. No bowel obstruction. 2. Appendix is not convincingly seen although no significant right lower quadrant inflammatory changes. 3. Bladder is markedly distended. This can be correlated for possible voluntary or involuntary causes of urinary retention. Electronically signed by: Damian Gibbs MD (09/27/2019 10:54 PM) [id number] DICTATED and SIGNED BY: DAMIAN GIBBS MD DATE: 09/27/19 2254 [] Course & Med Decision Making Course & Med Decision Making Pertinent Labs and Imaging studies reviewed. (See chart for details) []58-year-old female presents to the emergency department with complaints of vomiting, dizziness since yesterday. She as well describes nausea, epigastric and right lower quadrant pain. Patient has underlying history of hypertension, insulin-dependent diabetes. She describes the pain as a sharp sensation, states it comes and goes. Nothing makes her pain worse, nothing makes her pain better. Labs/Imaging reviewed Lactic acid 5.8, urinalysis negative, serum acetone negative White blood cell count 6.2, creatinine 1.0 CT abdomen and pelvis reveals no evidence of acute intra-abdominal process, no findings of acute appendicitis nor infectious etiology for patient's abdominal pain. Discussed findings of lactic acidosis, we'll admit given patient's insulin dependent diabetes and inability to tolerate by mouth intake Dragon Disclaimer Dragon Disclaimer This electronic medical record was generated, in whole or in part, using a voice recognition dictation system. Departure Departure Impression: Primary Impression: Nausea and vomiting Additional Impressions: Abdominal pain Lactic acid acidosis Diabetes Disposition: 09 ADMITTED INPATIENT Condition: STABLE Referrals: ALYCIA HORTA MD (PCP) Problem Qualifiers Primary Impression: Nausea and vomiting Vomiting type: unspecified Vomiting Intractability: intractable Qualified Codes: R11.2 - Nausea with vomiting, unspecified Additional Impressions: Abdominal pain Abdominal location: right lower quadrant Qualified Codes: R10.31 - Right lower quadrant pain Diabetes Diabetes mellitus type: type 1 Diabetes mellitus complication status: without complication Qualified Codes: E10.9 - Type 1 diabetes mellitus without complications DEMETRIO BONNER MD Sep 27, 2019 21:58
[2019-09-27 21:59] LABS: BILIRUBIN,URINE NEGATIVE (NEG); CLARITY,URINE CLEAR; COLOR,URINE YELLOW; NITRITE,URINE NEGATIVE (NEG); PROTEIN,URINE NEGATIVE (NEG-TRACE); UROBILINOGEN,URINE 0.2 mg/dL (0.2 mg/dL)
[2019-09-27] MEDS ORDERED: ONDANSETRON PF 4 MG/2 ML VIAL. IV ONE (22:00)
[2019-09-27] MEDS ORDERED: IV NORMAL SALINE 1000ML BAG 1,000 ML IV SCH (22:00)
[2019-09-27] MEDS ORDERED: fentaNYL PF VIAL 100 MCG/2 ML VIAL IV ONE (22:00)
[2019-09-27 22:02] LABS: BACTERIA,URINE 0 /HPF (0-FEW); RBC,URINE 0 /HPF (0-2); SQUAMOUS EPITHELIAL CELL,UR FEW /LPF; WBC,URINE 0 /HPF (0-4)
[2019-09-27 22:05] LABS: CALCIUM 9.2 mg/dL (8.5-10.1); GFR 56.7; POTASSIUM 4.1 mmol/L (3.5-5.1)
[2019-09-27 22:11] LABS: ALBUMIN 4.1 g/dL (3.4-5.0); ALBUMIN/GLOBULIN RATIO 1.1 (1.0-1.7); TOTAL BILIRUBIN 0.6 mg/dL (0.2-1.0); TOTAL PROTEIN 7.8 g/dL (6.4-8.2)
[2019-09-27] MEDS ORDERED: IOHEXOL 300 MG/ML 100ML VIAL. ONE (22:38)
[2019-09-27] MEDS ORDERED: CONTRAST GIVEN. MC PRN (22:45)
[2019-09-27] MEDS ORDERED: IOHEXOL 300 MG/ML 100ML VIAL. IV ONE (22:45)
--- NOTE | 2019-09-27 22:57 | RAD ---
EXAM: CT Abdomen and Pelvis with IV contrast CLINICAL HISTORY: Right lower quadrant pain. COMPARISON: 01/15/2019 TECHNIQUE: Helical CT of the abdomen and pelvis was performed following the administration of intravenous contrast. Axial, coronal and sagittal reformatted images were generated. PQRS compliance statement - One or more of the following individualized dose reduction techniques were utilized for this study: 1. Automated exposure control 2. Adjustment of the mA and/or kV according to patient size 3. Use of iterative reconstruction technique FINDINGS: Lower chest: Linear patchy opacities lower lobes likely scarring/atelectasis. Abdomen and Pelvis: Focal low-attenuation along the falciform ligament likely focal fatty infiltration. Spleen is unremarkable. Gallbladder is normal. No biliary ductal dilatation. Pancreas is unremarkable. Symmetric nephrograms. Subcentimeter hypodense left upper pole renal lesion too small to accurately characterize. No hydronephrosis or hydroureter. Bladder is markedly distended. Uterus and adnexa are grossly unremarkable. Moderate colonic stool content is seen. Appendix is not convincingly seen. No significant right lower quadrant inflammatory changes are seen. Aortic calcifications are seen. No abdominal or pelvic ascites. No abdominal or pelvic lymphadenopathy. Bones: Straightening of the normal lordosis. No spondylolisthesis. No aggressive osseous lesion is seen. IMPRESSION: 1. No bowel obstruction. 2. Appendix is not convincingly seen although no significant right lower quadrant inflammatory changes. 3. Bladder is markedly distended. This can be correlated for possible voluntary or involuntary causes of urinary retention. Electronically signed by: Damian Toney MD (09/27/2019 10:54 PM) [id number]
[2019-09-27] MEDS ORDERED: ONDANSETRON PF 4 MG/2 ML VIAL. IV PRN (23:45)
[2019-09-27] MEDS ORDERED: MORPHINE SULFATE 2 MG/ML VIAL. IV PRN (23:45)
[2019-09-28 00:37] VITALS: BP 144/68
[2019-09-28] MEDS ORDERED: LEVO75TA5 PO (01:09)
[2019-09-28] MEDS ORDERED: METH2.5T PO (01:09)
[2019-09-28] MEDS ORDERED: METF10007 PO (01:09)
[2019-09-28] MEDS ORDERED: INSU100V8 SQ (01:09)
[2019-09-28 01:18] LABS: BASO % 0 % (0-3); EOS # 0.3 x10^3/uL (0.0-0.7); EOS % 5 % (0-3); HEMATOCRIT 33.1 % (36.0-47.0); HEMOGLOBIN 11.4 g/dL (12.0-15.5); LYMPH # 1.5 x10^3/uL (1.0-4.8); LYMPH % 29 % (24-48); MEAN CORPUSCULAR HEMOGLOBIN 29 pg (25-35); MEAN CORPUSCULAR HGB CONC 34 g/dL (31-37); MEAN CORPUSCULAR VOLUME 85 fL (79-100); MONO # 0.5 x10^3/uL (0.0-1.1); MONO % 9 % (0-9); NEUT % 57 % (31-73); PLATELET COUNT 169 x10^3/uL (140-400); RED BLOOD COUNT 3.91 x10^6/uL (3.50-5.40); RED CELL DISTRIBUTION WIDTH 13.1 % (11.5-14.5); WHITE BLOOD COUNT 5.3 x10^3/uL (4.0-11.0)
[2019-09-28 01:31] LABS: ALBUMIN 3.6 g/dL (3.4-5.0); ALBUMIN/GLOBULIN RATIO 1.1 (1.0-1.7); CALCIUM 8.7 mg/dL (8.5-10.1); CREATININE 0.9 mg/dL (0.6-1.0); GFR 64.1; POTASSIUM 4.2 mmol/L (3.5-5.1); TOTAL BILIRUBIN 0.4 mg/dL (0.2-1.0); TOTAL PROTEIN 6.9 g/dL (6.4-8.2)
[2019-09-28] MEDS ORDERED: IV NORMAL SALINE 1000ML BAG 1,000 ML IV SCH (02:15)
[2019-09-28 03:00] VITALS: BP 111/56
--- NOTE | 2019-09-28 06:06 | EKG ---
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
[2019-09-28 07:00] VITALS: BP 108/49
[2019-09-28] MEDS ORDERED: INSU100C SQ (07:29)
--- NOTE | 2019-09-28 08:29 | PDOC1 ---
History and Physical Date of Admission Date of Admission DATE: 09/28/19 TIME: 08:22 Identification/Chief Complaint Chief Complaint Dizziness Source Source: Chart review, Patient History of Present Illness History of Present Illness 58-year-old female presents to the emergency department with complaints of vomiting, dizziness since yesterday. She as well describes nausea, epigastric and right lower quadrant pain. Patient has underlying history of hypertension, insulin-dependent diabetes. She describes the pain as a sharp sensation, states it comes and goes. Nothing makes her pain worse, nothing makes her pain better. Labs/Imaging reviewed Lactic acid 5.8, urinalysis negative, serum acetone negative White blood cell count 6.2, creatinine 1.0 CT abdomen and pelvis reveals no evidence of acute intra-abdominal process, no findings of acute appendicitis nor infectious etiology for patient's abdominal pain. Discussed findings of lactic acidosis, we'll admit given patient's insulin dependent diabetes and inability to tolerate by mouth intake Past Medical History Pulmonary: No pertinent hx Endocrine: Diabetes Past Surgical History Past Surgical History: No pertinent history Family History Family History: Hypertension Social History ALCOHOL: none Drugs: None Current Problem List Problem List Problems Medical Problems: (1) Abdominal pain Status: Acute (2) Diabetes Status: Acute (3) Lactic acid acidosis Status: Acute (4) Nausea and vomiting Status: Acute Current Medications Current Medications Current Medications Sodium Chloride 1,000 ml @ 1,000 mls/hr Q1H IV Last administered on 09/27/19at 22:11; Start 09/27/19 at 22:00; Stop 09/27/19 at 22:59; Status DC Fentanyl Citrate (Fentanyl 2ml Vial) 25 mcg 1X ONCE IV Last administered on 09/27/19at 22:11; Start 09/27/19 at 22:00; Stop 09/27/19 at 22:01; Status DC Ondansetron HCl (Zofran) 4 mg 1X ONCE IV Last administered on 09/27/19at 22:11; Start 09/27/19 at 22:00; Stop 09/27/19 at 22:01; Status DC Iohexol (Omnipaque 300 Mg/ml) 60 ml 1X ONCE IV Last administered on 09/27/19at 22:38; Start 09/27/19 at 22:45; Stop 09/27/19 at 22:46; Status DC Info (CONTRAST GIVEN -- Rx MONITORING) 1 each PRN DAILY PRN MC SEE COMMENTS; Start 09/27/19 at 22:45; Stop 09/29/19 at 22:44 Iohexol (Omnipaque 300 Mg/ml) 100 ml STK-MED ONCE .ROUTE ; Start 09/27/19 at 22:38; Stop 09/27/19 at 22:38; Status DC Ondansetron HCl (Zofran) 4 mg PRN Q8HRS PRN IV NAUSEA/VOMITING; Start 09/27/19 at 23:45; Stop 09/28/19 at 23:44 Morphine Sulfate (Morphine Sulfate) 2 mg PRN Q2HR PRN IV PAIN; Start 09/27/19 at 23:45; Stop 09/28/19 at 23:44 Sodium Chloride 1,000 ml @ 100 mls/hr Q10H IV Last administered on 09/28/19at 02:25; Start 09/28/19 at 02:15 Active Scripts Active Reported Humalog (Insulin Lispro) 100 Unit/1 Ml Cartridge 100 Unit SQ TIDAC 30 Days Levothyroxine Sodium 75 Mcg Tablet 1 Tab PO DAILY Metformin Hcl 1,000 Mg Tablet 1,000 Mg PO BIDWMEALS Methotrexate (Methotrexate Sodium) 2.5 Mg Tablet 2.5 Mg PO TUESDAY Lantus (Insulin Glargine,Hum.rec.anlog) 100 Unit/1 Ml Vial 16 Unit SQ BIDAFTMEAL Folic Acid 1 Mg Tablet 1 Mg PO DAILY Allergies Allergies: Coded Allergies: No Known Drug Allergies (Unverified , 09/23/13) ROS General: No: Chills, Night Sweats, Fatigue, Malaise, Appetite, Other PSYCHOLOGICAL ROS: No: Anxiety, Behavioral Disorder, Concentration difficultie, Decreased libido, Depression, Disorientation, Hallucinations, Hostility, Irritablity, Memory difficulties, Mood Swings, Obsessive thoughts, Physical abuse, Sexual abuse, Sleep disturbances, Suicidal ideation, Other Eyes: No Blurry vision, No Decreased vision, No Double vision, No Dry eyes, No Excessive tearing, No Eye Pain, No Itchy Eyes, No Loss of vision, No Photophobia, No Scotomata, No Uses contacts, No Uses glasses, No Other HEENT: No: Heacaches, Visual Changes, Hearing change, Nasal congestion, Nasal discharge, Oral lesions, Sinus pain, Sore Throat, Epistaxis, Sneezing, Snoring, Tinnitus, Vertigo, Vocal changes, Other ALLERGY AND IMMUNOLOGY: No: Hives, Insect Bite Sensitivity, Itchy/Watery Eyes, Nasal Congestion, Post Nasal Drip, Seasonal Allergies, Other Hematological and Lymphatic: No: Bleeding Problems, Blood Clots, Blood Transfusions, Brusing, Night Sweats, Pallor, Swollen Lymph Nodes, Other ENDOCRINE: No: Breast Changes, Galactorrhea, Hair Pattern Changes, Hot Flashes, Malaise/lethargy, Mood Swings, Palpitations, Polydipsia/polyuria, Skin Changes, Temperature Intolerance, Unexpected Weight Changes, Other Breast: No New/Changing Breast Lumps, No Nipple changes, No Nipple discharge, No Other Respiratory: No: Cough, Hemoptysis, Orthopnea, Pleuritic Pain, Shortness of breath, SOB with excertion, Sputum Changes, Stridor, Tachypnea, Wheezing, Other Cardiovascular: No Chest Pain, No Palpitations, No Orthopnea, No Paroxysmal Noc. Dyspnea, No Edema, No Lt Headedness, No Other Gastrointestinal: Yes Nausea, Yes Vomiting, Yes Abdominal Pain; No Diarrhea, No Constipation, No Melena, No Hematochezia, No Other Genitourinary: No Dysuria, No Frequency, No Incontinence, No Hematuria, No Retention, No Discharge, No Urgency, No Pain, No Flank Pain, No Other, No , No , No , No , No , No , No Musculoskeletal: No Gait Disturbance, No Joint Pain, No Joint Stiffness, No Joint Swelling, No Muscle Pain, No Muscular Weakness, No Pain In:, No Swelling In:, No Other Neurological: No Behavorial Changes, No Bowel/Bladder ControlChng, No Confusion, No Dizziness, No Gait Disturbance, No Headaches, No Impaired Coord/ balance, No Memory Loss, No Numbness/Tingling, No Seizures, No Speech Problems, No Tremors, No Visual Changes, No Weakness, No Other Skin: No Dry Skin, No Eczema, No Hair Changes, No Lumps, No Mole Changes, No Mottling, No Nail Changes, No Pruritus, No Rash, No Skin Lesion Changes, No Other, No Acne Physical Exam General: Alert, Oriented X3, Cooperative, No acute distress HEENT: Atraumatic, PERRLA, EOMI, Mucous membr. moist/pink Lungs: Clear to auscultation, Normal air movement Heart: S1S2, RRR, no thrills, no rubs Abdomen: Normal bowel sounds, Soft, No tenderness, No hepatosplenomegaly Extremities: No clubbing, No cyanosis, No edema, Normal pulses, No tenderness/swelling Skin: No rashes, No breakdown, No significant lesion Neuro: Normal gait, Normal speech, Strength at 5/5 X4 ext, Normal tone, Sensation intact, Cranial nerves 3-12 NL, Reflexes 2+ Psych/Mental Status: Mental status NL, Mood NL Vitals Vitals Vital Signs Date Time Temp Pulse Resp B/P (MAP) Pulse Ox O2 Delivery O2 Flow Rate FiO2 09/28/19 03:00 98.0 78 19 111/56 (74) 95 Room Air 98.0 Labs Labs Laboratory Tests Test 09/27/19 21:00 09/27/19 21:10 09/27/19 22:10 09/28/19 01:10 White Blood Count 6.2 x10^3/uL (4.0-11.0) 5.3 x10^3/uL (4.0-11.0) Red Blood Count 4.15 x10^6/uL (3.50-5.40) 3.91 x10^6/uL (3.50-5.40) Hemoglobin 12.0 g/dL (12.0-15.5) 11.4 g/dL (12.0-15.5) Hematocrit 35.2 % (36.0-47.0) 33.1 % (36.0-47.0) Mean Corpuscular Volume 85 fL (79-100) 85 fL (79-100) Mean Corpuscular Hemoglobin 29 pg (25-35) 29 pg (25-35) Mean Corpuscular Hemoglobin Concent 34 g/dL (31-37) 34 g/dL (31-37) Red Cell Distribution Width 12.8 % (11.5-14.5) 13.1 % (11.5-14.5) Platelet Count 181 x10^3/uL (140-400) 169 x10^3/uL (140-400) Neutrophils (%) (Auto) 64 % (31-73) 57 % (31-73) Lymphocytes (%) (Auto) 23 % (24-48) 29 % (24-48) Monocytes (%) (Auto) 8 % (0-9) 9 % (0-9) Eosinophils (%) (Auto) 4 % (0-3) 5 % (0-3) Basophils (%) (Auto) 0 % (0-3) 0 % (0-3) Neutrophils # (Auto) 4.0 x10^3/uL (1.8-7.7) 3.0 x10^3/uL (1.8-7.7) Lymphocytes # (Auto) 1.4 x10^3/uL (1.0-4.8) 1.5 x10^3/uL (1.0-4.8) Monocytes # (Auto) 0.5 x10^3/uL (0.0-1.1) 0.5 x10^3/uL (0.0-1.1) Eosinophils # (Auto) 0.3 x10^3/uL (0.0-0.7) 0.3 x10^3/uL (0.0-0.7) Basophils # (Auto) 0.0 x10^3/uL (0.0-0.2) 0.0 x10^3/uL (0.0-0.2) Sodium Level 130 mmol/L (136-145) 137 mmol/L (136-145) Potassium Level 4.1 mmol/L (3.5-5.1) 4.2 mmol/L (3.5-5.1) Chloride Level 93 mmol/L (98-107) 100 mmol/L (98-107) Carbon Dioxide Level 24 mmol/L (21-32) 25 mmol/L (21-32) Anion Gap 13 (6-14) 12 (6-14) Blood Urea Nitrogen 14 mg/dL (7-20) 12 mg/dL (7-20) Creatinine 1.0 mg/dL (0.6-1.0) 0.9 mg/dL (0.6-1.0) Estimated GFR (Cockcroft-Gault) 56.7 64.1 BUN/Creatinine Ratio 14 (6-20) 13 (6-20) Glucose Level 217 mg/dL (70-99) 133 mg/dL (70-99) Calcium Level 9.2 mg/dL (8.5-10.1) 8.7 mg/dL (8.5-10.1) Total Bilirubin 0.6 mg/dL (0.2-1.0) 0.4 mg/dL (0.2-1.0) Aspartate Amino Transf (AST/SGOT) 31 U/L (15-37) 21 U/L (15-37) Alanine Aminotransferase (ALT/SGPT) 45 U/L (14-59) 45 U/L (14-59) Alkaline Phosphatase 88 U/L (46-116) 84 U/L (46-116) Troponin I Quantitative < 0.017 ng/mL (0.000-0.055) Total Protein 7.8 g/dL (6.4-8.2) 6.9 g/dL (6.4-8.2) Albumin 4.1 g/dL (3.4-5.0) 3.6 g/dL (3.4-5.0) Albumin/Globulin Ratio 1.1 (1.0-1.7) 1.1 (1.0-1.7) Lipase 146 U/L (73-393) Acetone Level Neg (NEG) Urine Collection Type Unknown Urine Color Yellow Urine Clarity Clear Urine pH 6.0 Urine Specific [place] 1.010 Urine Protein Negative mg/dL (NEG-TRACE) Urine Glucose (UA) Negative mg/dL (NEG) Urine Ketones (Stick) Negative mg/dL (NEG) Urine Blood Negative (NEG) Urine Nitrite Negative (NEG) Urine Bilirubin Negative (NEG) Urine Urobilinogen Dipstick 0.2 mg/dL (0.2 mg/dL) Urine Leukocyte Esterase Negative (NEG) Urine RBC 0 /HPF (0-2) Urine WBC 0 /HPF (0-4) Urine Squamous Epithelial Cells Few /LPF Urine Bacteria 0 /HPF (0-FEW) Lactic Acid Level 5.8 mmol/L (0.4-2.0) 4.2 mmol/L (0.4-2.0) Test 09/28/19 08:19 Glucose (Fingerstick) 72 mg/dL (70-99) Laboratory Tests Test 09/27/19 21:00 09/27/19 21:10 09/27/19 22:10 09/28/19 01:10 White Blood Count 6.2 x10^3/uL (4.0-11.0) 5.3 x10^3/uL (4.0-11.0) Red Blood Count 4.15 x10^6/uL (3.50-5.40) 3.91 x10^6/uL (3.50-5.40) Hemoglobin 12.0 g/dL (12.0-15.5) 11.4 g/dL (12.0-15.5) Hematocrit 35.2 % (36.0-47.0) 33.1 % (36.0-47.0) Mean Corpuscular Volume 85 fL (79-100) 85 fL (79-100) Mean Corpuscular Hemoglobin 29 pg (25-35) 29 pg (25-35) Mean Corpuscular Hemoglobin Concent 34 g/dL (31-37) 34 g/dL (31-37) Red Cell Distribution Width 12.8 % (11.5-14.5) 13.1 % (11.5-14.5) Platelet Count 181 x10^3/uL (140-400) 169 x10^3/uL (140-400) Neutrophils (%) (Auto) 64 % (31-73) 57 % (31-73) Lymphocytes (%) (Auto) 23 % (24-48) 29 % (24-48) Monocytes (%) (Auto) 8 % (0-9) 9 % (0-9) Eosinophils (%) (Auto) 4 % (0-3) 5 % (0-3) Basophils (%) (Auto) 0 % (0-3) 0 % (0-3) Neutrophils # (Auto) 4.0 x10^3/uL (1.8-7.7) 3.0 x10^3/uL (1.8-7.7) Lymphocytes # (Auto) 1.4 x10^3/uL (1.0-4.8) 1.5 x10^3/uL (1.0-4.8) Monocytes # (Auto) 0.5 x10^3/uL (0.0-1.1) 0.5 x10^3/uL (0.0-1.1) Eosinophils # (Auto) 0.3 x10^3/uL (0.0-0.7) 0.3 x10^3/uL (0.0-0.7) Basophils # (Auto) 0.0 x10^3/uL (0.0-0.2) 0.0 x10^3/uL (0.0-0.2) Sodium Level 130 mmol/L (136-145) 137 mmol/L (136-145) Potassium Level 4.1 mmol/L (3.5-5.1) 4.2 mmol/L (3.5-5.1) Chloride Level 93 mmol/L (98-107) 100 mmol/L (98-107) Carbon Dioxide Level 24 mmol/L (21-32) 25 mmol/L (21-32) Anion Gap 13 (6-14) 12 (6-14) Blood Urea Nitrogen 14 mg/dL (7-20) 12 mg/dL (7-20) Creatinine 1.0 mg/dL (0.6-1.0) 0.9 mg/dL (0.6-1.0) Estimated GFR (Cockcroft-Gault) 56.7 64.1 BUN/Creatinine Ratio 14 (6-20) 13 (6-20) Glucose Level 217 mg/dL (70-99) 133 mg/dL (70-99) Calcium Level 9.2 mg/dL (8.5-10.1) 8.7 mg/dL (8.5-10.1) Total Bilirubin 0.6 mg/dL (0.2-1.0) 0.4 mg/dL (0.2-1.0) Aspartate Amino Transf (AST/SGOT) 31 U/L (15-37) 21 U/L (15-37) Alanine Aminotransferase (ALT/SGPT) 45 U/L (14-59) 45 U/L (14-59) Alkaline Phosphatase 88 U/L (46-116) 84 U/L (46-116) Troponin I Quantitative < 0.017 ng/mL (0.000-0.055) Total Protein 7.8 g/dL (6.4-8.2) 6.9 g/dL (6.4-8.2) Albumin 4.1 g/dL (3.4-5.0) 3.6 g/dL (3.4-5.0) Albumin/Globulin Ratio 1.1 (1.0-1.7) 1.1 (1.0-1.7) Lipase 146 U/L (73-393) Acetone Level Neg (NEG) Urine Collection Type Unknown Urine Color Yellow Urine Clarity Clear Urine pH 6.0 Urine Specific [place] 1.010 Urine Protein Negative mg/dL (NEG-TRACE) Urine Glucose (UA) Negative mg/dL (NEG) Urine Ketones (Stick) Negative mg/dL (NEG) Urine Blood Negative (NEG) Urine Nitrite Negative (NEG) Urine Bilirubin Negative (NEG) Urine Urobilinogen Dipstick 0.2 mg/dL (0.2 mg/dL) Urine Leukocyte Esterase Negative (NEG) Urine RBC 0 /HPF (0-2) Urine WBC 0 /HPF (0-4) Urine Squamous Epithelial Cells Few /LPF Urine Bacteria 0 /HPF (0-FEW) Lactic Acid Level 5.8 mmol/L (0.4-2.0) 4.2 mmol/L (0.4-2.0) Test 09/28/19 08:19 Glucose (Fingerstick) 72 mg/dL (70-99) Images Images CT abdomen/pelvis - Lower chest: Linear patchy opacities lower lobes likely scarring/atelectasis. Abdomen and Pelvis: Focal low-attenuation along the falciform ligament likely focal fatty infiltration. Spleen is unremarkable. Gallbladder is normal. No biliary ductal dilatation. Pancreas is unremarkable. Symmetric nephrograms. Subcentimeter hypodense left upper pole renal lesion too small to accurately characterize. No hydronephrosis or hydroureter. Bladder is markedly distended. Uterus and adnexa are grossly unremarkable. Moderate colonic stool content is seen. Appendix is not convincingly seen. No significant right lower quadrant inflammatory changes are seen. Aortic calcifications are seen. No abdominal or pelvic ascites. No abdominal or pelvic lymphadenopathy. Bones: Straightening of the normal lordosis. No spondylolisthesis. No aggressive osseous lesion is seen. IMPRESSION: 1. No bowel obstruction. 2. Appendix is not convincingly seen although no significant right lower quadrant inflammatory changes. 3. Bladder is markedly distended. This can be correlated for possible voluntary or involuntary causes of urinary retention. VTE Prophylaxis Ordered VTE Prophylaxis Devices: Yes VTE Pharmacological Prophylaxi: Yes Assessment/Plan Assessment/Plan A/P: Nausea and vomiting - IV antiemetics Abdominal pain - from metformin Lactic acid acidosis - likely from metformin while not taking PO Diabetes - sliding scale FEN - NPO PPX - lovenox FULL CODE Dispo - inpatient for vomiting INOCENTE PEÑA MD Sep 28, 2019 08:29
[2019-09-28] MEDS ORDERED: IV DEXTROSE 5% 250 ML BAG. IV PRN (08:30)
[2019-09-28] MEDS ORDERED: DEXTROSE 50% 25 GM / 50ML DISP.SYRIN. IV PRN (08:30)
[2019-09-28] MEDS ORDERED: FOLIC ACID 1 MG TABLET. PO SCH (10:00)
[2019-09-28] MEDS ORDERED: LEVOTHYROXINE 75 MCG TABLET PO SCH (10:00)
[2019-09-28 11:00] VITALS: BP 111/52
[2019-09-28] MEDS ORDERED: INSULIN LISPRO 300 UNITS/3 ML VIAL. SQ SCH (12:00)
--- NOTE | 2019-09-28 15:16 | NUR ---
pt discharged home with family. meds and follow up reviewed. pt stable upon DC. IV removed cath intact. son at bedside to take pt home.
[2019-09-28] MEDS ORDERED: INSULIN GLARGINE SYRINGE. SQ SCH (21:00)
--- NOTE | 2019-10-01 00:29 | PDOC3 ---
Discharge Summary Visit Information Date of Admission: Sep 27, 2019 Date of Discharge: Sep 28, 2019 Admitting Diagnosis: Abdominal pain Final Diagnosis Problems Medical Problems: (1) Abdominal pain Status: Acute (2) Diabetes Status: Acute (3) Lactic acid acidosis Status: Acute (4) Nausea and vomiting Status: Acute Brief Hospital Course Allergies Allergies Coded Allergies Type Severity Reaction Last Updated Verified No Known Drug Allergies 09/23/13 No Brief Hospital Course 58-year-old female presents to the emergency department with complaints of vomiting, dizziness since yesterday. She as well describes nausea, epigastric and right lower quadrant pain. Patient has underlying history of hypertension, insulin-dependent diabetes. She describes the pain as a sharp sensation, states it comes and goes. Nothing makes her pain worse, nothing makes her pain better. Labs/Imaging reviewed Lactic acid 5.8, urinalysis negative, serum acetone negative White blood cell count 6.2, creatinine 1.0 CT abdomen and pelvis reveals no evidence of acute intra-abdominal process, no findings of acute appendicitis nor infectious etiology for patient's abdominal pain. Discussed findings of lactic acidosis, we'll admit given patient's insulin dependent diabetes and inability to tolerate by mouth intake Over the course of 24 hours transitioned to insulin, advised not to take metformin while NPO due to lactic acidosis. Able to take PO well. Problem list: Nausea and vomiting - IV antiemetics Abdominal pain - from metformin Lactic acid acidosis - likely from metformin while not taking PO Diabetes - sliding scale Greater than 135 minutes spent on same day admit and d/c Discharge Information Condition at Discharge: Improved Follow Up: Weeks (1) Disposition/Orders: D/C to Home Scheduled Folic Acid (Folic Acid) 1 Mg Tablet, 1 MG PO DAILY, (Reported) Entered as Reported by: NINI WILSON on 05/29/18 [id number] Last Action: Continued on 09/28/19828 by INOCENTE PEÑA MD Insulin Glargine,Hum.rec.anlog (Lantus) 100 Unit/1 Ml Vial, 16 UNIT SQ BIDAFTMEAL for diabetes, (Reported) Entered as Reported by: ASHLEY RUIZ on 09/28/19108 Last Action: Continued on 09/28/19828 by INOCENTE PEÑA MD Insulin Lispro (Humalog) 100 Unit/1 Ml Cartridge, 100 UNIT SQ TIDAC for diabetes for 30 Days, (Reported) Entered as Reported by: CHLOE OSBORN on 09/28/19728 Last Action: New Order on 09/28/19728 by CHLOE OSBORN Levothyroxine Sodium (Levothyroxine Sodium) 75 Mcg Tablet, 1 TAB PO DAILY for thyroidism, #30 Ref 5 (Reported) Entered as Reported by: ASHLEY RUIZ on 09/28/19108 Last Action: Continued on 09/28/19828 by INOCENTE PEÑA MD Methotrexate Sodium (Methotrexate) 2.5 Mg Tablet, 2.5 MG PO for joint pain, (Reported) Entered as Reported by: ASHLEY RUIZ on 09/28/19108 Last Action: Reviewed on 09/28/19108 by ASHLEY RUIZ Discontinued Medications Metformin Hcl (Metformin Hcl) 1,000 Mg Tablet, 1,000 MG PO BIDWMEALS for diabetes, (Reported) Entered as Reported by: ASHLEY RUIZ on 09/28/19108 Last Action: Reviewed on 09/28/19108 by INOCENTE WONG MD Oct 01, 2019 00:29
== END 2019-09-28 14:00 | disposition home or self-care (01) ==
LOC: ER 20:42 → 5 SOUTH 23:18
PROVIDERS: ADMIT Internal Medicine; ATTEND Internal Medicine
DX: R10.9 Unspecified abdominal pain (principal); R11.2 Nausea with vomiting, unspecified; E87.2 Acidosis; K21.9 Gastro-esophageal reflux disease without esophagitis; I10 Essential (primary) hypertension; E87.1 Hypo-osmolality and hyponatremia; F17.210 Nicotine dependence, cigarettes, uncomplicated; Z90.49 Acquired absence of other specified parts of digestive tract
CPT/HCPCS: 36415; 74177; 80053; 81001; 82010; 82962; 83605; 83690; 84484; 85025; 93005; 96361; 96372; 96374; 96375; 99284; G0378; J1815; J2405; J3010; J7030; Q9967; G0379

== ENCOUNTER 2021-09-20 11:19 | Emergency (ER) | payer OTHER ==
[~2021-09-20] VITALS: Ht 152.4 cm; Wt 49.0 kg
[~2021-09-20 11:19] MED LIST changes: +INSU100C SQ; +LEVO75TA5 PO; +MIRT-7 PO; -MIRT15TA3 PO; -OMEP40CA45 PO; +OMEP40CA7 PO
--- NOTE | 2021-09-20 12:19 | RAD ---
EXAM: Chest, single view. HISTORY: Cough. COMPARISON: 03/29/2019 FINDINGS: A frontal view of the chest is obtained. There is no infiltrate, pleural effusion or pneumo thorax. The heart is normal in size. IMPRESSION: No acute pulmonary finding. Electronically signed by: Jaky Shaw MD (09/20/2021 12:17 PM) [facility]
[2021-09-20 12:25] LABS: INFLUENZA A PATIENT NEGATIVE (NEGATIVE); INFLUENZA B PATIENT NEGATIVE (NEGATIVE)
[2021-09-20] MEDS ORDERED: BENZ-8 PO (12:37)
--- NOTE | 2021-09-20 12:37 | PHYS DOC ---
Past Medical History Past Medical History: Abscess, Diabetes-Type I, GERD, Hypertension, Other Additional Past Medical Histor: hyponatremia Past Surgical History: Appendectomy, Other Additional Past Surgical Histo: bilateral eye Smoking Status: Current Every Day Smoker Alcohol Use: None Drug Use: None General Adult EDM: Chief Complaint: CHEST WALL PAIN HPI: HPI: Patient is a 60 year old female who presents with 4-day history of cough and chest wall pain. She states her pain is present when she coughs. Patient denie s palpitations, edema, sputum production, shortness of breath, abdominal pain, NVD. Patient reports she has received all available COVID vaccinations, including a booster, as well as her seasonal flu shot. She has no other complaints at this time. Review of Systems: Review of Systems: Constitutional: Denies fever, chills or generalized weakness Eyes: Denies change in visual acuity, visual field deficits or discharge HENT: Denies ear pain, nasal congestion or sore throat Respiratory: See HPI Cardiovascular: See HPI GI: See HPI : Denies dysuria or hematuria Musculoskeletal: Denies back pain or joint pain Integument: Denies rash or other skin lesion Neurologic: Denies headache, focal weakness or sensory changes Heart Score: C/O Chest Pain: N/A (chest wall) Allergies: Allergies: Allergies Coded Allergies Type Severity Reaction Last Updated Verified No Known Drug Allergies 09/23/13 No Physical Exam: PE: Constitutional: Well developed, well nourished, no acute distress, non-toxic appearance. HENT: Normocephalic, atraumatic, bilateral external ears normal, nose normal. Eyes: EOMI, conjunctiva normal, no discharge. Neck: Normal range of motion, no stridor. Cardiovascular: Heart regular rate and rhythm. Lungs & Thorax: Bilateral breath sounds clear to auscultation. Skin: Warm, dry, no erythema, no rash. Back: No tenderness, no CVA tenderness. Extremities: No tenderness, no cyanosis, no clubbing, ROM intact, no edema. Neurologic: Alert and oriented x4, steady and symmetrical upright gait, no focal deficits noted. Current Patient Data: Labs: Laboratory Tests Test 09/20/21 12:00 Influenza Type A Antigen Negative (NEGATIVE) Influenza Type B Antigen Negative (NEGATIVE) Vital Signs: Vital Signs Date Time Temp Pulse Resp B/P (MAP) Pulse Ox O2 Delivery O2 Flow Rate FiO2 1/30/22 11:25 98.0 75 28 127/61 (83) 98 Room Air 98.0 Radiology/Procedures: Radiology/Procedures: PROCEDURE: CHEST AP ONLY EXAM: Chest, single view. HISTORY: Cough. COMPARISON: 03/29/2019 FINDINGS: A frontal view of the chest is obtained. There is no infiltrate, pleural effusion or pneumothorax. The heart is normal in size. IMPRESSION: No acute pulmonary finding. Electronically signed by: Jaky Shaw MD (09/20/2021 12:17 PM) [facility] Course & Med Decision Making: Course & Med Decision Making Pertinent Labs and Imaging studies reviewed. (See chart for details) Patient is a 60-year-old nontoxic-appearing female who presents with chest wall pain secondary to cough that is been going on for 4 days. Work-up today will include swabs for influenza A&B as well as COVID-19, chest x-ray. Swabs for influenza came back negative. Chest x-ray is clear. Patient given quarantine instructions until Covid PCR test result is available. She was also given return precautions and supportive treatment measures. Patient understands and is agreeable to discharge plan. [employer] Disclaimer: [employer] Disclaimer: This electronic medical record was generated, in whole or in part, using a voice recognition dictation system. Departure Departure Impression: Primary Impression: Upper respiratory infection Qualified Codes: J06.9 - Acute upper respiratory infection, unspecified Additional Impression: Person under investigation for COVID-19 Disposition: HOME / SELF CARE / HOMELESS Condition: STABLE Referrals: ALYCIA HORTA MD (PCP) Patient Instructions: Upper Respiratory Infection, Adult, [id number] Additional Instructions: Follow the following supportive treatment measures: - Cool mist humidifier with plain water at bedside while you sleep - Mucinex (guaifenesin) per box instructions - Tessalon perles (benzonatate) for cough, especially at night before bed - Alternate ibuprofen and acetaminophen every four hours for body aches/fever/headache If antibiotics were prescribed, take them as directed. You have been tested for or diagnosed with COVID-19 infection. It is an infection caused by a new type of coronavirus. COVID-19 will cause cold-like or mild flu symptoms in most. It can cause more severe symptoms like problems breathing in some. There is no treatment for COVID-19. The body will clear the infection over time. Self-care will help to ease discomfort. Steps to Take: - Rest as needed. - Choose healthy foods including fruits and vegetables. Drink water throughout the day. - Get plenty of sleep each night. - If you smoke, try to quit. It may ease breathing. - Avoid alcohol. - Keep Others Healthy - The virus can spread to others. Droplets are released every time you sneeze or cough. The droplets can get into the mouth, nose, or eyes of people near you and lead to infection. To lower the chances of spreading COVID-19 to others: Stay at home until your doctor has said it is safe to leave. If you tested p ositive this will mean staying isolated until both of the following are true: - At least 10 days have passed since the start of illness. - You are free of fever for at least 72 hours without the use of medicine. During this time: - Avoid public areas, events, or transportation. Do not return to work or school until your doctor has said it is safe to do so. - Call ahead if you need to go to a medical center. Let them know you may have COVID-19. It will help them guide you where to go. They may also ask you to wear a facemask when you come to the office. - If you call for emergency medical services, let them know you may have COVID- 19. While at home: - Try to avoid close contact with others. Stay about 6 feet away. - If possible, spend most of your time in a separate room from others. - Use a face mask if you will be in close contact with others such as sharing a room or vehicle. - Have someone wipe down common surfaces in the home. Use household tan room supervisor every day on areas like doorknobs, counters, or sinks. - Cough or sneeze into a tissue. Throw the tissue away right after use. If a tissue is not available, cough or sneeze into your elbow. - Wash your hands often. Wash them after sneezing or coughing. Use soap and water and wash or at least 20 seconds. Alcohol based hand yarn cleaner can be used if soap and water is not available. - Do not prepare food for others. Avoid sharing personal items like forks, spoons, or toothbrushes. - Avoid close contact with pets while you are sick. There is no evidence of the virus passing to pets. This is a safety step until more is known about this virus. - Isolation can be frustrating. Social interaction can help. Keep in touch with friends and family through phone and tech options. You can still interact with others in your home, just keep a safe distance of about 6 feet. Follow-up: - Your doctors office will check in with you to see if there are any changes in your health. - You may be asked to keep track of symptoms to share with them. They will also let you know when you are clear to be in public again. Contact your doctor if your recovery is not going as you expect. Get emergency care if you have problems such as: - Trouble breathing with oxygen saturation <90% - Nonstop chest pain or pressure - Changes in awareness, confusion, or problems waking - Lips or face have bluish color - Worsening of symptoms If you think you have an emergency, call for emergency medical services right away. As taken from [facility] Scripts Benzonatate (BENZONATATE) 100 Mg Capsule 1-2 CAP PO Q4HRS, #20 CAP Prov: ANA ROSA NEGRON 09/20/21 ANA ROSA NEGRON Sep 20, 2021 12:37
[2021-09-20 14:15] VITALS: BP 113/75
--- NOTE | 2021-09-22 01:21 | EKG ---
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
--- NOTE | 2021-09-22 11:20 | NUR ---
IP: Attempted to contact pt concerning covid results. No answer, left a voicemail to return the call.
--- NOTE | 2021-09-22 14:19 | NUR ---
IP: Son returned call due to pt not speaking Telugu. Informed him of mother's positive covid test and the need to quarantine for 10 days. He verbalized understanding.
== END 2021-09-20 14:24 | disposition home or self-care (01) ==
LOC: ER 11:19
DX: U07.1 COVID-19 (principal); J06.9 Acute upper respiratory infection, unspecified; K21.9 Gastro-esophageal reflux disease without esophagitis; I10 Essential (primary) hypertension; E10.9 Type 1 diabetes mellitus without complications; F17.200 Nicotine dependence, unspecified, uncomplicated
CPT/HCPCS: 71045; 87428; 99285; U0003; U0005; 93005

== ENCOUNTER 2021-11-05 13:32 | Emergency (ER) | payer OTHER ==
[~2021-11-05] VITALS: Ht 152.4 cm; Wt 48.6 kg
[~2021-11-05 13:32] MED LIST changes: +BENZ-8 PO
[2021-11-05 13:35] VITALS: BP 123/75
--- NOTE | 2021-11-05 14:04 | PHYS DOC ---
Past Medical History Past Medical History: Abscess, Diabetes-Type I, GERD, Hypertension, Other Additional Past Medical Histor: hyponatremia Past Surgical History: Appendectomy, Other Additional Past Surgical Histo: bilateral eye Smoking Status: Current Every Day Smoker Alcohol Use: None Drug Use: None General Adult EDM: Chief Complaint: BACK PAIN - NO INJURY HPI: HPI: Patient is a 61 year old female with a history of diabetes type 2, hypertension, who presents to the ED today complaining of 6 out of 10 sharp intermittent right low back pain that began 5 days ago while moving from bending position to stand up as she got out of the shower. Patient denies falling. States the pain is radiating to the right lower extremity. Denies any loss of bowel/bladder function. Reports the pain is worse on ambulation. Patient is Albanian speaking and morphology teacher line is used Review of Systems: Review of Systems: Constitutional: Denies fever or chills. [] GI: Denies abdominal pain, nausea, vomiting, bloody stools or diarrhea. [] : Denies dysuria. [] Musculoskeletal: Reports right low back pain radiating to the right lower extremity. Integument: Denies rash. [] Neurologic: Denies headache, focal weakness or sensory changes. [] Psychiatric: Denies depression or anxiety. [] Heart Score: C/O Chest Pain: N/A Risk Factors: Risk Factors: DM, Current or recent (<one month) smoker, HTN, HLP, family history of CAD, obesity. Risk Scores: Score 0 - 3: 2.5% MACE over next 6 weeks - Discharge Home Score 4 - 6: 20.3% MACE over next 6 weeks - Admit for Clinical Observation Score 7 - 10: 72.7% MACE over next 6 weeks - Early Invasive Strategies Allergies: Allergies: Allergies Coded Allergies Type Severity Reaction Last Updated Verified No Known Drug Allergies 09/23/13 No Physical Exam: PE: Constitutional: Well developed, well nourished, no acute distress, non-toxic appearance. [] Abdomen: Bowel sounds normal, soft, no tenderness, no masses, no pulsatile masses. [] Skin: Warm, dry, no erythema, no rash. [] Back: Tenderness on the right SI joint, no midline lumbar spine tenderness, no CVA tenderness. Positive straight leg raise at approximately 30 degrees on the right Extremities: No tenderness, no cyanosis, no clubbing, ROM intact, no edema. [] Neurologic: Alert and oriented X 3, normal motor function, normal sensory function, no focal deficits noted. [] Psychologic: Affect normal, judgement normal, mood normal. [] Current Patient Data: Vital Signs: Vital Signs Date Time Temp Pulse Resp B/P (MAP) Pulse Ox O2 Delivery O2 Flow Rate FiO2 11/05/21 13:35 98.3 76 18 123/75 (91) 98 Room Air 98.3 EKG: EKG: [] Radiology/Procedures: Radiology/Procedures: []PROCEDURE: LUMBAR SPINE 2-3V EXAM: Lumbar spine, 3 views. HISTORY: Pain. COMPARISON: None. FINDINGS: 3 views of the lumbar spine are obtained. There is 2 mm anterolisthesis of L4 on L5. There is minimal facet arthropathy at multiple levels. There is no acute fracture. There is no suspicious osseous lesion. IMPRESSION: No acute osseous finding. Electronically signed by: Jaky Shaw MD (11/05/2021 2:13 PM) [id number] DICTATED and SIGNED BY: JAKY SHAW MD DATE: 11/05/211411 Course & Med Decision Making: Course & Med Decision Making Pertinent Labs and Imaging studies reviewed. (See chart for details) This a 61-year-old female patient presented to the ED today with right low back pain radiating to the right lower extremity that began 5 days ago while getting out of the shower. No fall. Lumbar spine x-rays are negative for any acute findings. Discharge to home. Follow-up with PCP in 1 to 2 weeks Janie Disclaimer: Janie Disclaimer: This electronic medical record was generated, in whole or in part, using a voice recognition dictation system. Departure Departure Impression: Primary Impression: Sciatica, right side Additional Impression: Low back pain Qualified Codes: M54.41 - Lumbago with sciatica, right side Disposition: 01 HOME / SELF CARE / HOMELESS Condition: STABLE Referrals: ALYCIA HORTA MD (PCP) Follow-up in the next 7 days Patient Instructions: Sciatica with [facility] Additional Instructions: You were seen for low back pain with sciatica, your lumbar spine x-rays are negative for any acute findings. Please contact your primary care doctor in follow-up in 1 to 2 weeks. Consider using a heating pad to your back. Take the prescribed medications as needed for your pain. Scripts Hydrocodone Bit/Acetaminophen (HYDROCODONE-APAP 5-325 ) 1 Tab Tablet 1 TAB PO PRN Q6HRS PRN for PAIN, #10 TAB 0 Refills Prov: OLMAN VILLATORO APRN 11/05/21 Cyclobenzaprine Hcl (CYCLOBENZAPRINE HCL) 10 Mg Tablet 1 TAB PO TID, #30 TAB Prov: OLMAN VILLATORO APRN 11/05/21 OLMAN VILLATORO APRN Nov 05, 2021 14:04
--- NOTE | 2021-11-05 14:15 | RAD ---
EXAM: Lumbar spine, 3 views. HISTORY: Pain. COMPARISON: None. FINDINGS: 3 views of the lumbar spine are obtained. There is 2 mm anterolisthesis of L4 on L5. There is minimal facet arthropathy at multiple levels. There is no acute fracture. There is no suspicious o sseous lesion. IMPRESSION: No acute osseous finding. Electronically signed by: Jaky Shaw MD (11/05/2021 2:13 PM) [id number]
[2021-11-05] MEDS ORDERED: CYCLOBENZAPRINE 10 MG TABLET. PO ONE (14:30)
[2021-11-05] MEDS ORDERED: HYDROcodone/APAP 5/325MG 1 TAB TABLET PO ONE (14:30)
[2021-11-05] MEDS ORDERED: HYDR-2761 PO (14:31)
[2021-11-05] MEDS ORDERED: CYCL10TA19 PO (14:31)
== END 2021-11-05 14:40 | disposition home or self-care (01) ==
LOC: ER 13:32
DX: M54.41 Lumbago with sciatica, right side (principal); E10.9 Type 1 diabetes mellitus without complications; K21.9 Gastro-esophageal reflux disease without esophagitis; I10 Essential (primary) hypertension; F17.200 Nicotine dependence, unspecified, uncomplicated; Z90.89 Acquired absence of other organs
CPT/HCPCS: 72100; 99283